=== PATIENT | female | born 1965 | race Caucasian/White ===

== ENCOUNTER 2017-08-29 06:58 | Emergency (ER) | payer OTHER ==
[2017-08-29 07:46] VITALS: BP 189/77; PULSE 76; TEMP 98; BMI 46.7
[2017-08-29] MEDS ORDERED: ONDANSETRON 4 MG TABLET PO ONE (08:27)
[2017-08-29] MEDS ORDERED: IBUPROFEN 600 MG TABLET (FP) PO ONE ×2 (08:27→08:41)
[2017-08-29] MEDS ORDERED: AMOXICILLIN 500 MG CAPSULE (FP) PO ONE (08:27)
--- NOTE | 2017-08-29 08:33 | PDOC ---
History of Present Illness - General History Source: Patient Exam Limitations: No Limitations - History of Present Illness Initial Comments: 08/29/17 08:35 The patient is a 52 year old female, with a significant past medical history of IDDM, GERD, HTN, Obesity who presents to the emergency department with sore throat, ear pain and subjective fever for the past 4 days. Patient denies taking any medications for relief and presents to the ED for further evaluation. Patient reports sick contacts at home. Patient denies chest pain, headache or dizziness. Patient denies abdominal pain , nausea, vomit, diarrhea or constipation. Patient denies dysuria, frequency, urgency or hematuria. Patient denied recent travel. <Mile Arrieta - Last Filed: 08/29/17 08:35> - General History Source: Patient Exam Limitations: No Limitations <Freddy Cosme - Last Filed: 08/29/17 08:36> - General Chief Complaint: Sore Throat Stated Complaint: COLD SYMPTOMS,DIABETIC Time Seen by Provider: 08/29/17 08:14 Past History <Mile Arrieta - Last Filed: 08/29/17 08:35> - Past Medical History COPD: No Diabetes: Yes (IDDM) GI Disorders: Yes (GERD) HTN: Yes - Suicide/Smoking/Psychosocial Hx Smoking History: Never smoked Have you smoked in the past 12 months: No Number of Cigarettes Smoked Daily: 0 Hx Alcohol Use: No Drug/Substance Use Hx: No Substance Use Type: None <Freddy Cosme - Last Filed: 08/29/17 08:36> - Past Medical History Allergies/Adverse Reactions: Allergies Allergy/AdvReac Type Severity Reaction Status Date / Time No Known Allergies Allergy Verified 08/29/17 07:27 Home Medications: Ambulatory Orders Aspirin [ASA -] 81 mg PO DAILY 01/23/16 Cefpodoxime Proxetil [Vantin -] 100 mg PO BID #20 tablet 01/23/16 Celecoxib [Celebrex] 200 mg PO DAILY 01/23/16 Furosemide [Lasix -] 20 mg PO DAILY 01/23/16 Insulin Detemir [Levemir Flextouch] 40 unit SQ BID 01/23/16 Losartan Potassium [Cozaar -] 25 mg PO DAILY 01/23/16 Metformin HCl 850 mg PO BID 01/23/16 Amoxicillin - [Amoxicillin 875mg Tablet -] 875 mg PO BID #14 tab 08/29/17 Ibuprofen [Motrin -] 600 mg PO Q6H PRN #20 tablet 08/29/17 Ondansetron HCl [Zofran] 4 mg PO Q8H PRN #10 tablet 08/29/17 Review of Systems - Review of Systems Able to Perform ROS?: Yes Comments:: 08/29/17 08:35 GENERAL/CONSTITUTIONAL: + fever or chills. No weakness. HEAD, EYES, EARS, NOSE AND THROAT: No change in vision. + ear pain and discharge. + sore throat. CARDIOVASCULAR: No chest pain or shortness of breath. RESPIRATORY: No cough, wheezing, or hemoptysis. GASTROINTESTINAL: No nausea, vomiting, diarrhea or constipation. GENITOURINARY: No dysuria, frequency, or change in urination. MUSCULOSKELETAL: No joint or muscle swelling or pain. No neck or back pain. SKIN: No rash NEUROLOGIC: No headache, vertigo, loss of consciousness, or change in strength/ sensation. ENDOCRINE: No increased thirst. No abnormal weight change. HEMATOLOGIC/LYMPHATIC: No anemia, easy bleeding, or history of blood clots. ALLERGIC/IMMUNOLOGIC: No hives or skin allergy. <Mile Arrieta - Last Filed: 08/29/17 08:35> *Physical Exam - Vital Signs Last Vital Signs Temp Pulse Resp BP Pulse Ox 98 F 76 18 189/77 97 08/29/17 07:25 08/29/17 07:25 08/29/17 07:25 08/29/17 07:25 08/29/17 07:25 - Physical Exam Comments: 08/29/17 08:36 GENERAL: Awake, alert, and fully oriented, in no acute distress HEAD: No signs of trauma EYES: PERRLA, EOMI, sclera anicteric, conjunctiva clear ENT: Auricles normal inspection, hearing grossly normal, nares patent, +L tympanic membrane with mild purulence. +Mild erythematous oropharynx. NECK: Normal ROM, supple, no lymphadenopathy, JVD, or masses LUNGS: Breath sounds equal, clear to auscultation bilaterally. No wheezes, and no crackles HEART: Regular rate and rhythm, normal S1 and S2, no murmurs, rubs or gallops ABDOMEN: Soft, nontender, normoactive bowel sounds. No guarding, no rebound. No masses EXTREMITIES: Normal range of motion, no edema. No clubbing or cyanosis. No cords, erythema, or tenderness NEUROLOGICAL: Cranial nerves II through XII grossly intact. Normal speech, normal gait SKIN: Warm, Dry, normal turgor, no rashes or lesions noted. <Mile Arrieta - Last Filed: 08/29/17 08:35> - Vital Signs Last Vital Signs Temp Pulse Resp BP Pulse Ox 98 F 76 18 189/77 97 08/29/17 07:25 08/29/17 07:25 08/29/17 07:25 08/29/17 07:25 08/29/17 07:25 <Freddy Cosme - Last Filed: 08/29/17 08:36> Medical Decision Making - Medical Decision Making 08/29/17 08:27 A portion of this note was documented by scribe services under my direction. I have reviewed the details of the note, within reason, and agree with the documentation with the following case summary and management plan written by me. Patient treated in the ED. Nursing notes are reviewed and incorporated into the medical decision-making. Vital signs reviewed. Vital Signs Temp Pulse Resp BP Pulse Ox 98 F 76 18 189/77 97 08/29/17 07:25 08/29/17 07:25 08/29/17 07:25 08/29/17 07:25 08/29/17 07:25 52-year-old female with past medical history obesity, insulin-dependent diabetes presents with sore throat, left earache, tactile fevers for 4 days. Reports a contact with a friend who visited. Denies difficulty breathing or chest pain. Also reports a mild nausea with the symptoms. The patient has left sided otitis media. NSAIDs, amoxicillin and follow with PMD. Return precautions given including worsening symptoms. I discussed the physical exam findings, ancillary test results and final diagnoses with the patient. I answered all of the patient's questions. The patient was satisfied with the care received and felt comfortable with the discharge plan and treatment plan. The patient will call their primary care physician within 24 hours to arrange follow-up and will return to the Emergency Department with any new, persistant or worsening symptoms. <Freddy Cosme - Last Filed: 08/29/17 08:36> *DC/Admit/Observation/Transfer - Attestations Scribe Attestion: 08/29/17 08:36 Documentation prepared by Mile Arrieta, acting as medical office supervisor for Freddy Cosme MD, /DO. <Mile Arrieta - Last Filed: 08/29/17 08:35> - Discharge Dispostion Admit: No <Freddy Cosme - Last Filed: 08/29/17 08:36> Diagnosis at time of Disposition: Otitis media Qualifiers: Otitis media type: unspecified Chronicity: acute Qualified Code(s): H66.90 - Otitis media, unspecified, unspecified ear - Discharge Dispostion Disposition: HOME Condition at time of disposition: Stable - Prescriptions Prescriptions: Amoxicillin - [Amoxicillin 875mg Tablet -] 875 mg PO BID #14 tab Ibuprofen [Motrin -] 600 mg PO Q6H PRN #20 tablet PRN Reason: Pain/fever Ondansetron HCl [Zofran] 4 mg PO Q8H PRN #10 tablet PRN Reason: Nausea - Referrals Referrals: Claire Diaz MD [Non Staff, Medical] - - Patient Instructions Printed Discharge Instructions: Middle Ear Infection Additional Instructions: Please take the amoxicillin every 12 hours for 7 days for your ear infection. Follow up with your doctor. - Post Discharge Activity Forms/Work/School Notes: Back to Work
[2017-08-29] MEDS ORDERED: AMOXICILLIN 500 MG CAPSULE (FP) ONE (08:40)
[2017-08-29] MEDS ORDERED: ONDANSETRON 8 MG TABLET (FP) PO ONE (08:42)
== END 2017-08-29 08:49 | disposition home or self-care (01) ==
LOC: JER 06:58
DX: H66.90 Otitis media, unspecified, unspecified ear (principal); E11.9 Type 2 diabetes mellitus without complications; K21.9 Gastro-esophageal reflux disease without esophagitis; I10 Essential (primary) hypertension
CPT/HCPCS: 99281-25

== ENCOUNTER 2017-09-03 13:12 | Inpatient (IN) | payer OTHER ==
--- NOTE | 2017-09-03 13:39 | PDOC ---
History of Present Illness - General Stated Complaint: VOMITING Time Seen by Provider: 09/03/17 13:15 - History of Present Illness Initial Comments: 09/03/17 13:37 Pt is a 52 y/o F poor historian with PMH IDDM, GERD, HTN, and Obesity who presents to ED BIBEMS for malaise, nausea, and NBNB vomiting since Sat. Pt was here last Wed with cold symptoms. She was sent home with a course of Amoxicillin, which she has not completed. Pt states she has not improved since discharge. Per EMS, BP at home was 180/88, BGM was 378. Pt takes amoxacillin, ibuprofen, and insulin, though she has not taken any of her meds today. Pt denies nausea, vomiting, diarrhea today, but still feels weak and tired. Pt states she is normally able to eat and drink without problems and denies bowel/bladder symptoms. She states she does not take Insulin normally at home and cannot recall which medications she does take. Currently afebrile, stable, and lethargic appearing. AAOx3. BGM 344 in ED Past History - Past Medical History Allergies/Adverse Reactions: Allergies Allergy/AdvReac Type Severity Reaction Status Date / Time No Known Allergies Allergy Verified 09/03/17 13:38 Home Medications: Ambulatory Orders Aspirin [ASA -] 81 mg PO DAILY 01/23/16 Cefpodoxime Proxetil [Vantin -] 100 mg PO BID #20 tablet 01/23/16 Celecoxib [Celebrex] 200 mg PO DAILY 01/23/16 Furosemide [Lasix -] 20 mg PO DAILY 01/23/16 Insulin Detemir [Levemir Flextouch] 60 unit SQ BID 01/23/16 Losartan Potassium [Cozaar -] 25 mg PO DAILY 01/23/16 Metformin HCl 850 mg PO BID 01/23/16 Ibuprofen [Motrin -] 600 mg PO Q6H PRN #20 tablet 08/29/17 Ondansetron HCl [Zofran] 4 mg PO Q8H PRN #10 tablet 08/29/17 COPD: No Diabetes: Yes (IDDM) GI Disorders: Yes (GERD) HTN: Yes - Suicide/Smoking/Psychosocial Hx Smoking History: Never smoked Have you smoked in the past 12 months: No Number of Cigarettes Smoked Daily: 0 Hx Alcohol Use: No Drug/Substance Use Hx: No Substance Use Type: None Review of Systems - Review of Systems Able to Perform ROS?: Yes Is the patient limited Italian proficient: No Constitutional: Yes: Symptoms Reported. No: Chills, Fever HEENTM: Yes: Symptoms Reported. No: Blurred Vision Respiratory: Yes: Symptoms reported. No: Cough Cardiac (ROS): Yes: Symptoms Reported. No: Chest Pain ABD/GI: Yes: Symptoms Reported, Nausea, Vomiting. No: Diarrhea : Yes: Symptoms Reported. No: Burning, Dysuria, Frequency, Incontinence, Pain , Urgency Musculoskeletal: Yes: Symptoms Reported. No: Back Pain Integumentary: Yes: Symptoms Reported. No: Lesions, Rash Neurological: Yes: Symptoms reported, Headache. No: Numbness *Physical Exam - Physical Exam General Appearance: Yes: Nourished, Appropriately Dressed, Disheveled, Obese, Other (somewhat lethargic). No: Apparent Distress, Alcohol on Breath HEENT: positive: EOMI, KLEBER, Normal Voice. negative: Normal ENT Inspection ( adentulous) Neck: positive: Supple. negative: Tender, Carotid bruit Respiratory/Chest: positive: Lungs Clear, Normal Breath Sounds. negative: Chest Tender, Respiratory Distress, Accessory Muscle Use Cardiovascular: positive: Regular Rhythm, Regular Rate, S1, S2. negative: Edema Vascular Pulses: Dorsalis-Pedis (R): 2+, Doralis-Pedis (L): 2+ Gastrointestinal/Abdominal: positive: Normal Bowel Sounds, Soft, Other (obese) Extremity: positive: Normal Range of Motion, Pedal Edema, Other (some stasis dermatitis). negative: Delayed Capillary Refill Integumentary: positive: Erythema (lower extremities) Neurologic: positive: mma fighter II-XII NML intact, Fully Oriented. negative: Alert ( somewhat lethargic) ED Treatment Course - LABORATORY CBC & Chemistry Diagram: 09/03/17 14:50 09/03/17 14:18 Medical Decision Making - Medical Decision Making 09/03/17 13:49 Pt is a 52 y/o F with PMH IDDM, HTN, GERD, Obesity who presents to ED with vague symptoms of malaise, nausea, and vomiting. Plan -CBC -CMP -BGM 378 in the field. BGM 344 in ED. Insulin -serum acetone -lipase -UA/UCx -Lactic Acid -EKG -2L NS -Zofran 09/03/17 16:26 Labs are benign. WBC, lipase, chem unremarkable apart from an elevated glucose. Pt is slightly better after fluids, but still weak appearing and not at her baseline. Will admit to obs 09/03/17 16:50 Spoke with hospitalist. Pt is accepted for admission to obs 09/03/17 18:21 Was called to see pt. Per nurse, pt was moved to a new bed. She was placed in her new bed and seen there by nurse. Nurse went to drop something off a few feet away, came back, and saw pt on the ground next to her bed. Pt states she slipped and slid down onto the ground. She denies having hit her head. She denies LOC. Neuro exam nonfocal. CN 2-12 intact with the possible exception of very subtle decreased R nasolabial fold. sensory and motor exams intact. No pronator drift. Will confirm no acute stroke with head CT. 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
[2017-09-03] MEDS ORDERED: ONDANSETRON 4 MG/2 ML VIAL IVPB ONE (14:12)
[2017-09-03] MEDS ORDERED: SODIUM CHLORIDE 1,000 ML IV STA ×2 (14:13→14:14)
[2017-09-03] MEDS ORDERED: INSULIN REGULAR HUMAN 100 UNITS/ML *VIAL SQ ONE (14:15)
--- NOTE | 2017-09-03 14:20 | PDOC ---
Attending Attestation - Resident Resident Name: J [email or web address] - ED Attending Attestation I have performed the following: I have examined & evaluated the patient, The case was reviewed & discussed with the resident, I agree w/resident's findings & plan, Exceptions are as noted - HPI HPI: 09/03/17 14:17 52-year-old female with history of diabetes presents with 1 week of increasing malaise, decreased appetite with vomiting, questionable epigastric discomfort. Hyperglycemia to 300 at home, denies any fevers or chills, denies any localizing symptoms of infection. - Physicial Exam PE: 09/03/17 14:18 Afebrile, slightly elevated blood pressure Morbidly obese Asleep/somnolent but arousable and oriented Dry mucosa Heart and lungs are clear Epigastric/right upper quadrant discomfort to palpation without guarding or rebound Bilateral venous stasis changes without warmth or erythema to suggest cellulitis - Medical Decision Making 09/03/17 14:18 Patient seen and evaluated with the resident. I agree with the overall evaluation, assessment, and management with the following summary of visit: 52-year-old female with history of diabetes presents with worsening malaise, dehydration, vomiting. Question primary GI etiology such as biliary or pancreatitis, rule out DKA. Labs including pH and acetone, ua/urine cx IV fluids, antiemetic, insulin Chest x-ray, EKG Reassess, likely admission Heart Score/ECG Review #1 ECG reviewed & interpreted by me at: 14:03 General ECG Interpretation: Sinus Rhythm, Normal Rate (76), Normal Intervals ( qtc 441), No acute ischemic changes
[2017-09-03 14:58] LABS: BASO % 0.6 % (0-2.0); EOS % 0.9 % (0-4.5); HEMATOCRIT 48.6 % (32.4-45.2); HEMOGLOBIN 15.8 GM/dL (10.7-15.3); LYMPH % 32.2 % (8-40); MCH 28.1 pg (25.7-33.7); MCHC 32.4 g/dl (32.0-36.0); MEAN CELL VOLUME 86.6 fl (80-96); NEUT % 59.3 % (42.8-82.8); PLATELET COUNT 207 K/MM3 (134-434); RBC 5.62 M/mm3 (3.60-5.2); RDW 13.6 % (11.6-15.6); WHITE BLOOD COUNT 7.5 K/mm3 (4.0-10.0)
[2017-09-03] MEDS ORDERED: INSULIN REGULAR HUMAN 100 UNITS/ML *VIAL ONE (15:03)
[2017-09-03] MEDS ORDERED: ONDANSETRON 4 MG/2 ML VIAL ONE (15:03)
[2017-09-03 15:21] LABS: ALBUMIN 3.1 g/dl (3.4-5.0); ANION GAP 6 (8-16); BILIRUBIN,TOTAL 0.3 mg/dL (0.2-1.0); BLOOD UREA NITROGEN 12 mg/dL (7-18); CALCIUM 8.9 mg/dL (8.5-10.1); CHLORIDE 99 mmol/L (98-107); CO2 33 mmol/L (21-32); CREATININE 0.7 mg/dL (0.55-1.02); LIPASE 112 U/L (73-393); SGPT/ALT 21 U/L (12-78); SODIUM 138 mmol/L (136-145); TOT PROT 7.2 g/dl (6.4-8.2)
[2017-09-03 15:22] LABS: ALK PHOS 123 U/L (45-117)
[2017-09-03 15:25] LABS: POTASSIUM 4.4 mmol/L (3.5-5.1)
[2017-09-03 15:26] LABS: SGOT/AST 15 U/L (15-37)
[2017-09-03 15:28] LABS: GLUCOSE,RANDOM 328 mg/dL (74-106)
[2017-09-03] MEDS ORDERED: ONDANSETRON 4 MG TABLET PO PRN (18:23)
[2017-09-03] MEDS ORDERED: HEPARIN NA (PORCINE) 5,000 UNITS/ML 1ML VIAL SQ SCH (18:30)
[2017-09-03] MEDS ORDERED: SODIUM CHLORIDE 1,000 ML IV SCH ×3 (18:30→22:47)
--- NOTE | 2017-09-03 18:34 | HP ---
CHIEF COMPLAINT: "People keep disturbing me, I want to sleep." PCP: Unknown HISTORY OF PRESENT ILLNESS: 52 year-old woman with a PMH significant for HTN, IDDM, GERD, and morbid obesity. Patient is unable to give a history to this provider and there are no family members present. On the basis of a chart review, the patient was seen in the ED last Saturday with a sore throat and otitis media. She was treated and released with a course of amoxicillin. Patient was BIBA today with a report weakness and fatigue x 5 days. ER course was notable for: (1) afebrile, BP 159/77, p 75, SpO2 100% on room air (2) Glucose 378 (3) CT head: 1.1 x 0.7 cm focus left thalamus suggestive of acute/subacute nonhemorrhage infarct; 0.7cm focus upper hayley, acute nonhemorrhagic infarct v. artifact Recent Travel: Not obtainable PAST MEDICAL HISTORY: Hypertension IDDM GERD Morbid obesity PAST SURGICAL HISTORY: None reported Social History: lives with and two children Smoking: never Alcohol: no Drugs: no Family History: Allergies No Known Allergies Allergy (Verified 09/03/17 13:38) HOME MEDICATIONS: Home Medications Medication Instructions Recorded Aspirin [ASA -] 81 mg PO DAILY 01/23/16 Cefpodoxime Proxetil [Vantin -] 100 mg PO BID #20 tablet 01/23/16 Celecoxib [Celebrex] 200 mg PO DAILY 01/23/16 Furosemide [Lasix -] 20 mg PO DAILY 01/23/16 Insulin Detemir [Levemir Flextouch] 60 unit SQ BID 01/23/16 Losartan Potassium [Cozaar -] 25 mg PO DAILY 01/23/16 Metformin HCl 850 mg PO BID 01/23/16 Ibuprofen [Motrin -] 600 mg PO Q6H PRN #20 tablet 08/29/17 Ondansetron HCl [Zofran] 4 mg PO Q8H PRN #10 tablet 08/29/17 REVIEW OF SYSTEMS Unable to obtain due to patient's altered mental status, somnolence PHYSICAL EXAMINATION Vital Signs - 24 hr 09/03/17 09/03/17 09/03/17 13:36 15:43 16:31 Temperature 97.7 F Pulse Rate 75 Pulse Rate [ 79 Apical] Respiratory 19 18 Rate Blood Pressure 159/77 Blood Pressure 138/71 [Right Arm] O2 Sat by Pulse 100 98 99 Oximetry (%) GENERAL: Awake, lethargic, yawning and closes eyes while talking; speech content is disjointed HEAD: Normal with no signs of trauma. EYES: Pupils equal, round and reactive to light, extraocular movements intact, sclera anicteric, conjunctiva clear. No lid lag. EARS, NOSE, THROAT: Ears normal, nares patent, oropharynx clear without exudates. Moist mucous membranes. Edentulous. NECK: Normal range of motion, supple without lymphadenopathy, JVD, or masses. LUNGS: Breath sounds equal, clear to auscultation bilaterally. No wheezes, and no crackles. No accessory muscle use. HEART: Regular rate and rhythm, normal S1 and S2 +murmur ABDOMEN: Soft, obese, not tender, hypoactive bowel sounds MUSCULOSKELETAL: Normal range of motion at all joints. No bony deformities or tenderness. No CVA tenderness. UPPER EXTREMITIES: 2+ pulses, warm, well-perfused. No cyanosis. No clubbing. No peripheral edema. LOWER EXTREMITIES: 2+ pulses, warm, well-perfused. 3+ bilateral edema, venous stasis changes NEUROLOGICAL: Cranial nerves II-XII intact. Speech is delayed, content disjointed. Laboratory Results - last 24 hr 09/03/17 09/03/17 09/03/17 13:31 14:18 14:50 WBC 7.5 RBC 5.62 H Hgb 15.8 H D Hct 48.6 H MCV 86.6 MCH 28.1 MCHC 32.4 RDW 13.6 Plt Count 207 MPV 11.0 Neutrophils % 59.3 Lymphocytes % 32.2 D Monocytes % 7.0 Eosinophils % 0.9 Basophils % 0.6 Sodium 138 Potassium 4.4 Chloride 99 Carbon Dioxide 33 H Anion Gap 6 L BUN 12 Creatinine 0.7 Creat Clearance w eGFR > 60 POC Glucometer < 50 Random Glucose 328 H* Calcium 8.9 Total Bilirubin 0.3 D AST 15 D ALT 21 D Alkaline Phosphatase 123 H Total Protein 7.2 Albumin 3.1 L Lipase 112 ASSESSMENT/PLAN 52 year-old woman with a PMH significant for HTN, IDDM, GERD, and morbid obesity who presents with fatigue and somnolence, and found to have a left thalamic acute/subacute nonhemorrhagic infarct, and possibly a pontine acute nonhemorrhagic infarct. Acute/Subacute CVA --CT head: 1.1 x 0.7 cm focus of left thalamus suggestive of acute/subacute nonhemorrhagic infarct; 0.7cm focus upper hayley, acute nonhemorrhagic infarct v. artifact --full dose ASA --high dose Lipitor --echo, US carotids, serial ECGs --MRI brain --neuro consult Hypertension --BP 159/77 on admission --hold Losartan IDDM --Novolog sliding scale coverage --need to verify Levemir dose with pharmacy which is presently closed GERD --Protonix IVP 40mg daily FEN Fluids: NS @ 83mL/hr while NPO Electrolytes: replete as indicated Nutrition: needs speech and swallow; too lethargic to eat; NPO DVT prophylaxis: SCDs; hold chemical prophylaxis Physical therapy evaluation Swallow evaluation Dispo: continues to require inpatient care. Full code. Visit type - Emergency Visit Emergency Visit: Yes ED Registration Date: 09/03/17 Care time: The patient presented to the Emergency Department on the above date and was hospitalized for further evaluation of their emergent condition. - New Patient This patient is new to me today: Yes Date on this admission: 09/03/17 - Critical Care Critical Care patient: No
[2017-09-03] MEDS ORDERED: FUROSEMIDE 40 MG TABLET (FP) ONE (18:43)
[2017-09-03] MEDS: FUROSEMIDE 20 MG TABLET (FP) PO SCH (18:43)
[2017-09-03] MEDS ORDERED: ASPIRIN 325 MG ENTERIC COATED TABLET (FP) PO SCH (20:30)
[2017-09-03] MEDS ORDERED: ASPIRIN 325 MG TABLET ONE (20:32)
[2017-09-03] MEDS ORDERED: ATORVASTATIN CA 80 MG TABLET (FP) ONE (20:32)
--- NOTE | 2017-09-03 20:34 | HOSP ---
Subjective - Review of Symptoms Subjective: Called R. Subacute/acute CVA on CT -No timeline of sx - Asa, Statin, echo, carotid, npo, S&S, Trend trop, tele, Neuro consulted, TSh, b12, folate, HgbA1c, MRI Brain wo con Physical Examination Vital Signs: Vital Signs Temperature 97.7 F 09/03/17 13:36 Pulse Rate 79 09/03/17 16:31 Respiratory Rate 18 09/03/17 16:31 Blood Pressure 138/71 09/03/17 16:31 O2 Sat by Pulse Oximetry (%) 99 09/03/17 16:31 Labs: CBC, BMP 09/03/17 14:50 09/03/17 14:18
[2017-09-03] MEDS: ASPIRIN 325 MG ENTERIC COATED TABLET (FP) PO STA (20:41)
[2017-09-03] MEDS: ATORVASTATIN CA 80 MG TABLET (FP) PO ONE ×2 (20:41→20:46)
[2017-09-03] MEDS: ASPIRIN 81 MG CHEWABLE TABLETS PO SCH (20:41)
[2017-09-03] MEDS: INSULIN SLIDING SCALE (NOVOLOG) 1 VIAL SQ SCH (22:35)
[2017-09-03] MEDS ORDERED: chlordiazePOXIDE HCL 25 MG CAPSULE PO PRN (22:45)
[2017-09-03] MEDS ORDERED: LORazepam 2 MG/ML SDV VIAL IVPUSH ONE (22:50)
[2017-09-03] MEDS ORDERED: CEFTRIAXONE 1 G/50 ML PREMIX 50 ML IVPB SCH (23:00)
[2017-09-03] MEDS ORDERED: chlordiazePOXIDE HCL 25 MG CAPSULE PO SCH (23:00)
[2017-09-03 23:11] VITALS: BMI 47.0
[2017-09-04] MEDS: ASPIRIN 325 MG ENTERIC COATED TABLET (FP) PO STA (02:16)
[2017-09-04 05:11] LABS: URINE APPEARANCE CLEAR; URINE BILIRUBIN NEGATIVE (NEGATIVE); URINE BLOOD NEGATIVE (NEGATIVE); URINE COLOR LTYELLOW; URINE GLUCOSE (UA) NEGATIVE (NEGATIVE); URINE KETONE NEGATIVE (NEGATIVE); URINE LEUK ESTERASE NEGATIVE (NEGATIVE); URINE NITRITE NEGATIVE (NEGATIVE); URINE PROTEIN NEGATIVE (NEGATIVE); URINE UROBILINOGEN NEGATIVE mg/dL (0.2-1.0)
[2017-09-04] MEDS ORDERED: HEPARIN NA (PORCINE) 5,000 UNITS/ML 1ML VIAL SQ SCH (06:00)
[2017-09-04] MEDS: INSULIN SLIDING SCALE (NOVOLOG) 1 VIAL SQ SCH ×4 (06:22→21:53)
[2017-09-04 07:30] LABS: BASO % 0.4 % (0-2.0); EOS % 1.3 % (0-4.5); HEMATOCRIT 43.8 % (32.4-45.2); LYMPH % 39.4 % (8-40); MCH 27.6 pg (25.7-33.7); MCHC 31.9 g/dl (32.0-36.0); MEAN CELL VOLUME 86.7 fl (80-96); NEUT % 49.9 % (42.8-82.8); PLATELET COUNT 192 K/MM3 (134-434); RBC 5.05 M/mm3 (3.60-5.2); RDW 13.3 % (11.6-15.6); WHITE BLOOD COUNT 6.7 K/mm3 (4.0-10.0)
[2017-09-04 07:44] LABS: ALBUMIN 2.8 g/dl (3.4-5.0); ANION GAP 4 (8-16); BLOOD UREA NITROGEN 12 mg/dL (7-18); CHLORIDE 103 mmol/L (98-107); CHOLESTEROL 211 mg/dL (50-200); CO2 34 mmol/L (21-32); CREATININE 0.7 mg/dL (0.55-1.02); GLUCOSE,RANDOM 232 mg/dL (74-106); MAGNESIUM 1.8 mg/dL (1.8-2.4); PHOSPHOROUS 4.1 mg/dL (2.5-4.9); POTASSIUM 3.8 mmol/L (3.5-5.1); SGOT/AST 9 U/L (15-37); SGPT/ALT 17 U/L (12-78); SODIUM 141 mmol/L (136-145); TOT PROT 6.1 g/dl (6.4-8.2); TRIGLYCERIDES 219 mg/dL (35-160)
[2017-09-04 07:51] LABS: ALK PHOS 100 U/L (45-117); BILIRUBIN,TOTAL 0.5 mg/dL (0.2-1.0); HDL CHOLESTEROL 37 mg/dL (40-60)
[2017-09-04 08:06] LABS: INR 1.03 (0.82-1.09); PROTHROMBIN TIME (PATIENT) 11.6 SEC (9.98-11.88)
[2017-09-04 08:09] LABS: ACTIVATED PTT 26.3 SECONDS (26.9-34.4)
--- NOTE | 2017-09-04 09:17 | CON.NEURO ---
Consult - History of Present Illness History of Present Illness: 52 year-old woman with a PMH significant for HTN, IDDM, GERD, and morbid obesity. Patient is unable to give a history to this provider and there are no family members present. On the basis of a chart review, the patient was seen in the ED last Saturday with a sore throat and otitis media. She was treated and released with a course of amoxicillin. Patient was BIBA today with a report weakness and fatigue x 5 days. denies focal weakness, numbness; no toxic habits; mild COOK CT head: 1.1 x 0.7 cm focus left thalamus suggestive of acute/subacute nonhemorrhage infarct; 0.7cm focus upper hayley, acute nonhemorrhagic infarct v. artifact - History Source History Provided By: Patient, Medical Record - Past Medical History ...: No - Alcohol/Substance Use Hx Alcohol Use: No - Smoking History Smoking history: Never smoked Have you smoked in the past 12 months: No Aproximately how many cigarettes per day: 0 Home Medications - Allergies Allergies/Adverse Reactions: Allergies Allergy/AdvReac Type Severity Reaction Status Date / Time No Known Allergies Allergy Verified 09/03/17 13:38 - Home Medications Home Medications: Ambulatory Orders Aspirin [ASA -] 81 mg PO DAILY 01/23/16 Cefpodoxime Proxetil [Vantin -] 100 mg PO BID #20 tablet 01/23/16 Celecoxib [Celebrex] 200 mg PO DAILY 01/23/16 Furosemide [Lasix -] 20 mg PO DAILY 01/23/16 Insulin Detemir [Levemir Flextouch] 60 unit SQ BID 01/23/16 Losartan Potassium [Cozaar -] 25 mg PO DAILY 01/23/16 Metformin HCl 850 mg PO BID 01/23/16 Ibuprofen [Motrin -] 600 mg PO Q6H PRN #20 tablet 08/29/17 Ondansetron HCl [Zofran] 4 mg PO Q8H PRN #10 tablet 08/29/17 Physical Exam-Neuro Vital Signs: Vital Signs Temperature 97.5 F L 09/04/17 06:00 Pulse Rate 88 09/04/17 06:00 Respiratory Rate 20 09/04/17 06:00 Blood Pressure 128/63 09/04/17 06:00 O2 Sat by Pulse Oximetry (%) 97 01/03/18 02:27 Constitutional: Yes: Well Nourished, No Distress Labs: CBC, BMP 09/04/17 06:30 09/04/17 06:30 INR, PTT INR 1.03 (0.82-1.09) 09/04/17 06:30 - Neuro Exam Level Of Consciousness: Yes: Alert, Oriented to Person (EOMI, no facial, poor dentition, nmo drift , no weakness, reflexes symmtric , no sesnory ABNL ) Imaging - Results Cat Scan: Report Reviewed, Image Reviewed Problem List - Problems (1) CVA (cerebral vascular accident) Code(s): I63.9 - CEREBRAL INFARCTION, UNSPECIFIED (2) Hyperglycemia due to type 2 diabetes mellitus Code(s): E11.65 - TYPE 2 DIABETES MELLITUS WITH HYPERGLYCEMIA Qualifiers: Diabetes mellitus group home 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 Qualified Code( s): E11.65 - Type 2 diabetes mellitus with hyperglycemia; Z79.4 - long term care social worker ( current) use of insulin; Z79.4 - long term care social worker (current) use of insulin; Z79.4 - correction (current) use of insulin; Z79.4 - long term care social worker (current) use of insulin Assessment/Plan 52 year-old woman with a PMH significant for HTN, IDDM, GERD, and morbid obesity , admitted with fatigue and generalized weakness CT suggets L thalamic stroke though neurologically do not see focal deficits HX of DM uncontrolled--optimization -- n check MRI BRAIN /MRA, ECHO , Dopplers ASA, statin A1c, TSH PT consult Dr Ruiz
--- NOTE | 2017-09-04 09:30 | EKG ---
Test Reason : Blood Pressure : / mmHG Vent. Rate : 076 BPM Atrial Rate : 076 BPM P-R Int : 160 ms QRS Dur : 082 ms QT Int : 392 ms P-R-T Axes : 059 018 041 degrees QTc Int : 441 ms NORMAL SINUS RHYTHM POSSIBLE LEFT ATRIAL ENLARGEMENT BORDERLINE ECG Confirmed by MD Quan, Abdiaziz ([id number]) on 09/04/2017 9:30:07 AM Referred By: Confirmed By:Abdiaziz Glass MD
[2017-09-04] MEDS ORDERED: LOSARTAN POTASSIUM 25 MG TABLET PO SCH (10:00)
[2017-09-04] MEDS: FUROSEMIDE 20 MG TABLET (FP) PO SCH ×2 (11:00→17:51)
[2017-09-04] MEDS: ASPIRIN 81 MG CHEWABLE TABLETS PO SCH ×2 (11:00→17:51)
[2017-09-04] MEDS: PANTOPRAZOLE SODIUM 40 MG VIAL IVPUSH SCH (11:03)
--- NOTE | 2017-09-04 15:47 | CONSULT ---
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 Cardiovascular: Yes: HTN Gastrointestinal: Yes: GERD ...: No Endocrine: Yes: Diabetes Mellitus Additional Past Medical History: obesity, otitis media, hyperglycemia - Smoking History Smoking history: Never smoked Have you smoked in the past 12 months: No Aproximately how many cigarettes per day: 0 - Alcohol/Substance Use Hx Alcohol Use: No History - Admission Reason For Visit: TYPE 2 DIABETES MELLITUS W/ HYPERGLYCEMIA - Diagnostics X-ray: Report Reviewed CT Scan: Report Reviewed MRI: Report Reviewed - General Mental Status: Awake and Alert, Intermittently Confused Attention: Minimal Impairment Ability to Follow Directions: Good Head/Neck Control: Good - Hearing Hearing: Normal Speech Evaluation - Communication Primary Language: GU[place] - Swallow Evaluation/Bedside Assessment Current Nutritional Intake: NPO Oral Secretions: Yes: WFL Tracheostomy Present: No Patient on Ventilator: No Dentition: Yes: Missing Teeth Facial Symmetry at Rest: Facial Droop Right Facial Movement: Controlled Sensation: Normal Jaw Position: Closed at Rest Against Resistance Opening: Normal Pucker Lips: Normal Smile: Normal Lingual Movement: Normal Lingual Speed of Movement: Normal Lingual Movement Strgth Against Opposition: Normal Soft Palate Description: Normal Color Hard Palate Description: Normal Color Gag Reflex: Strong Bite Reflex: Absent Velopharyngeal Movement: Normal Laryngeal Elevation: WFL Laryngeal Movement: Able to Palpate Needs Assistance: No Rate of Intake: WFL Bolus Size: WFL Labial Seal: WFL Oral Prep Time: WFL A-P Transit: WFL Pocketing: None Timing of Swallow: WFL Coughing/Throat Clear: No Change in Voice: No Recommendations - Dysphagia Impressions/Plan Swallowing Skills: WFL Dysphagia Evaluation Summary: 52 year old female is able to tolerate thin liquids and pureed consistencies without signs of aspiration. 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 - Recommendations Diet Consistency: Dysphagia Whole Medication Administration: Whole with water Liquids: Thin Liquids
--- NOTE | 2017-09-04 16:49 | EKG ---
Test Reason : Blood Pressure : / mmHG Vent. Rate : 095 BPM Atrial Rate : 095 BPM P-R Int : 156 ms QRS Dur : 080 ms QT Int : 350 ms P-R-T Axes : 051 015 049 degrees QTc Int : 439 ms NORMAL SINUS RHYTHM POSSIBLE LEFT ATRIAL ENLARGEMENT NONSPECIFIC T WAVE ABNORMALITY ABNORMAL ECG WHEN COMPARED WITH ECG OF 03-SEP-2017 14:03, NO SIGNIFICANT CHANGE WAS FOUND Confirmed by REYNA THAKUR MD ([id number]) on 09/04/2017 4:48:54 PM Referred By: PASCUAL Ruiz DR Confirmed By:REYNA THAKUR MD
--- NOTE | 2017-09-04 17:14 | PN ---
Physical Exam: SUBJECTIVE: Patient seen and examined at bedside, "I'm tired. I just want to sleep." Denies pain. OBJECTIVE: Vital Signs Period Temp Pulse Resp BP Sys/Ziegler Pulse Ox Last 24 Hr 97.5 F-9798.2 F 70-88 16-20 128-144/63-77 97-100 GENERAL: Slightly more awake than yesterday, but still lethargic. Speech is clear, content coherent. HEAD: Normal with no signs of trauma. EYES: PERRL, extraocular movements intact, sclera anicteric, conjunctiva clear. No ptosis. ENT: Ears normal, nares patent, oropharynx clear without exudates, moist mucous membranes. NECK: Trachea midline, full range of motion, supple. LUNGS: Breath sounds equal, clear to auscultation bilaterally, no wheezes, no crackles, no accessory muscle use. HEART: Regular rate and rhythm, S1, S2 without murmur, rub or gallop. ABDOMEN: Soft, obese, nontender, nondistended, normoactive bowel sounds, no guarding, no rebound UPPER EXTREMITIES: 2+ pulses, warm, well-perfused. No cyanosis. No clubbing. No peripheral edema. LOWER EXTREMITIES: 2+ pulses, warm, well-perfused. 3+ bilateral edema, venous stasis changes NEUROLOGICAL: Cranial nerves II-XII intact. Speech is delayed, content disjointed. Laboratory Results - last 24 hr 09/04/17 09/04/17 09/04/17 04:30 05:27 06:30 WBC 6.7 RBC 5.05 Hgb 14.0 D Hct 43.8 MCV 86.7 MCH 27.6 MCHC 31.9 L RDW 13.3 Plt Count 192 MPV 11.0 Neutrophils % 49.9 Lymphocytes % 39.4 D Monocytes % 9.0 Eosinophils % 1.3 Basophils % 0.4 PT with INR INR PTT (Actin FS) Sodium Potassium Chloride Carbon Dioxide Anion Gap BUN Creatinine Creat Clearance w eGFR POC Glucometer 217 Random Glucose Hemoglobin A1c % Calcium Phosphorus Magnesium Total Bilirubin AST ALT Alkaline Phosphatase Total Protein Albumin Triglycerides Cholesterol Total LDL Cholesterol HDL Cholesterol TSH Urine Color Ltyellow Urine Appearance Clear Urine pH 5.0 Ur Specific [place] 1.011 Urine Protein Negative Urine Glucose (UA) Negative Urine Ketones Negative Urine Blood Negative Urine Nitrite Negative Urine Bilirubin Negative Urine Urobilinogen Negative Ur Leukocyte Esterase Negative 09/04/17 09/04/17 09/04/17 06:30 06:30 06:30 WBC RBC Hgb Hct MCV MCH MCHC RDW Plt Count MPV Neutrophils % Lymphocytes % Monocytes % Eosinophils % Basophils % PT with INR 11.60 INR 1.03 PTT (Actin FS) 26.3 L Sodium 141 Potassium 3.8 Chloride 103 Carbon Dioxide 34 H Anion Gap 4 L BUN 12 Creatinine 0.7 Creat Clearance w eGFR > 60 POC Glucometer Random Glucose 232 H D Hemoglobin A1c % 12.7 H Calcium 8.0 L Phosphorus 4.1 Magnesium 1.8 Total Bilirubin 0.5 D AST 9 L D ALT 17 Alkaline Phosphatase 100 Total Protein 6.1 L Albumin 2.8 L Triglycerides 219 H Cholesterol 211 H Total LDL Cholesterol HDL Cholesterol 37 L TSH 1.66 Urine Color Urine Appearance Urine pH Ur Specific [place] Urine Protein Urine Glucose (UA) Urine Ketones Urine Blood Urine Nitrite Urine Bilirubin Urine Urobilinogen Ur Leukocyte Esterase 09/04/17 09/04/17 06:30 11:11 WBC RBC Hgb Hct MCV MCH MCHC RDW Plt Count MPV Neutrophils % Lymphocytes % Monocytes % Eosinophils % Basophils % PT with INR INR PTT (Actin FS) Sodium Potassium Chloride Carbon Dioxide Anion Gap BUN Creatinine Creat Clearance w eGFR POC Glucometer 234 Random Glucose Hemoglobin A1c % Calcium Phosphorus Magnesium Total Bilirubin AST ALT Alkaline Phosphatase Total Protein Albumin Triglycerides Cholesterol Total LDL Cholesterol 143 H HDL Cholesterol TSH Urine Color Urine Appearance Urine pH Ur Specific [place] Urine Protein Urine Glucose (UA) Urine Ketones Urine Blood Urine Nitrite Urine Bilirubin Urine Urobilinogen Ur Leukocyte Esterase Active Medications Generic Name Dose Route Start Last Admin Trade Name [place] PRN Reason Stop Dose Admin Aspirin 81 mg 09/03/17 18:30 09/04/17 11:00 Asa - PO Not Given DAILY [facility] Atorvastatin Calcium 80 mg 09/04/17 22:00 Lipitor - PO HS YOSI Furosemide 20 mg 09/03/17 18:30 09/04/17 11:00 Lasix - PO Not Given DAILY YOSI Insulin Aspart 1 vial 09/03/17 22:00 09/04/17 12:56 Novolog Vial Sliding Scale - SQ 4 units ACHS YOSI Administration Protocol Pantoprazole Sodium 40 mg 09/04/17 10:00 09/04/17 11:03 Protonix Iv IVPUSH 40 mg DAILY YOSI Administration ASSESSMENT/PLAN 52 year-old woman with a PMH significant for HTN, IDDM, GERD, and morbid obesity who presents with fatigue and somnolence, and found to have a left thalamic acute/subacute nonhemorrhagic infarct, and possibly a pontine acute nonhemorrhagic infarct. Acute/Subacute CVA --09/04 MRI brain: acute infarct in the ventral left thalamus encroaching on the posterior limb of the left internal capsule with mild focal mass effect on the third ventricle; chronic infarcts bilateral thalami, left midbrain, and superior left hayley --09/04 MRA brain: severe narrowing with attenuated flow in the distal P1 and proximal P2 segment of the left posterior cerebral artery, atherosclerosis v. vasculitis --09/03 US carotids: mild atherosclerotic disease without evidence of hemodynamically significant stenosis --continue ASA --high dose Lipitor --start Plavix --Dr. Ruiz following Diastolic dysfunction --09/04 Echo: impaired LV relaxation; RV normal; LAE; no atrial septal defect; mild MR; mild TR; trace PI --bilateral lower extremity edema --is on home dose Lasix PO 20mg; will not increase at this time so as not to drop BP Hypertension --BP 159/77 on admission --hold home Losartan and HCTZ IDDM --Novolog sliding scale coverage --per pharmacy, patient takes Levemir 60U qhs which seems high since patient has required only minimal sliding scale coverage; hold Levemir for now GERD --Protonix Depression --resume home Zoloft FEN Fluids: PO intake adequate Electrolytes: replete as indicated Nutrition: speech and swallow eval done: soft diet DVT prophylaxis: SCDs; subq heparin Physical therapy evaluation Dispo: continues to require inpatient care. Full code. Visit type - Emergency Visit Emergency Visit: Yes ED Registration Date: 09/03/17 Care time: The patient presented to the Emergency Department on the above date and was hospitalized for further evaluation of their emergent condition. - New Patient This patient is new to me today: No - Critical Care Critical Care patient: No
[2017-09-04] MEDS: CLOPIDOGREL BISULFATE 75 MG TABLET (FP) PO SCH (17:59)
[2017-09-04] MEDS: SERTRALINE HCL 50 MG TABLET (FP) PO SCH (18:05)
[2017-09-04] MEDS: ATORVASTATIN CA 80 MG TABLET (FP) PO SCH (21:49)
[2017-09-04] MEDS: HEPARIN NA (PORCINE) 5,000 UNITS/ML 1ML VIAL SQ SCH (21:49)
[2017-09-04] MEDS ORDERED: INSULIN (NOVOLOG) ASPART 100 UNITS/ML 10ML VIAL ONE (21:52)
[2017-09-04] MEDS ORDERED: chlordiazePOXIDE HCL 25 MG CAPSULE PO SCH (23:00)
[2017-09-05] MEDS: INSULIN SLIDING SCALE (NOVOLOG) 1 VIAL SQ SCH ×4 (06:05→21:53)
[2017-09-05] MEDS: HEPARIN NA (PORCINE) 5,000 UNITS/ML 1ML VIAL SQ SCH ×3 (06:05→21:53)
[2017-09-05] MEDS ORDERED: INSULIN (NOVOLOG) ASPART 100 UNITS/ML 10ML VIAL ONE ×2 (06:22→21:32)
--- NOTE | 2017-09-05 07:23 | PN ---
Progress Note (short form) - Note Progress Note: 52 year-old woman with a PMH significant for HTN, IDDM, GERD, and morbid obesity. Patient is unable to give a history to this provider and there are no family members present. On the basis of a chart review, the patient was seen in the ED last Saturday with a sore throat and otitis media. She was treated and released with a course of amoxicillin. Patient was BIBA today with a report weakness and fatigue x 5 days. denies focal weakness, numbness; no toxic habits; mild COOK CT head: 1.1 x 0.7 cm focus left thalamus suggestive of acute/subacute nonhemorrhage infarct; 0.7cm focus upper hayley, acute nonhemorrhagic infarct v. 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 --suspect symptomatic atherolsclerosis rather than vasculitis --poorly controlled DM ECHO-essentially NL DOppler-no hemodynamic stenosis - History Source History Provided By: Patient, Medical Record - Past Medical History ...: No - Alcohol/Substance Use Hx Alcohol Use: No - Smoking History Smoking history: Never smoked Have you smoked in the past 12 months: No Aproximately how many cigarettes per day: 0 Home Medications - Allergies Allergies/Adverse Reactions: Allergies Allergy/AdvReac Type Severity Reaction Status Date / Time No Known Allergies Allergy Verified 09/03/17 13:38 - Home Medications Home Medications: Ambulatory Orders Aspirin [ASA -] 81 mg PO DAILY 01/23/16 Cefpodoxime Proxetil [Vantin -] 100 mg PO BID #20 tablet 01/23/16 Celecoxib [Celebrex] 200 mg PO DAILY 01/23/16 Furosemide [Lasix -] 20 mg PO DAILY 01/23/16 Insulin Detemir [Levemir Flextouch] 60 unit SQ BID 01/23/16 Losartan Potassium [Cozaar -] 25 mg PO DAILY 01/23/16 Metformin HCl 850 mg PO BID 01/23/16 Ibuprofen [Motrin -] 600 mg PO Q6H PRN #20 tablet 08/29/17 Ondansetron HCl [Zofran] 4 mg PO Q8H PRN #10 tablet 08/29/17 Physical Exam-Neuro Vital Signs: Vital Signs Temperature 98.2 F 09/05/17 05:49 Pulse Rate 81 09/05/17 05:49 Respiratory Rate 18 09/05/17 05:49 Blood Pressure 146/85 09/05/17 05:49 O2 Sat by Pulse Oximetry (%) 92 L 09/05/17 02:00 Constitutional: Yes: Well Nourished, No Distress Labs: CBCD WBC 6.7 K/mm3 (4.0-10.0) 09/04/17 06:30 RBC 5.05 M/mm3 (3.60-5.2) 09/04/17 06:30 Hgb 14.0 GM/dL (10.7-15.3) D 09/04/17 06:30 Hct 43.8 % (32.4-45.2) 09/04/17 06:30 MCV 86.7 fl (80-96) 09/04/17 06:30 MCHC 31.9 g/dl (32.0-36.0) L 09/04/17 06:30 RDW 13.3 % (11.6-15.6) 09/04/17 06:30 Plt Count 192 K/MM3 (134-434) 09/04/17 06:30 MPV 11.0 fl (7.5-11.1) 09/04/17 06:30 CMP Sodium 141 mmol/L (136-145) 09/04/17 06:30 Potassium 3.8 mmol/L (3.5-5.1) 09/04/17 06:30 Chloride 103 mmol/L (98-107) 09/04/17 06:30 Carbon Dioxide 34 mmol/L (21-32) H 09/04/17 06:30 Anion Gap 4 (8-16) L 09/04/17 06:30 BUN 12 mg/dL (7-18) 09/04/17 06:30 Creatinine 0.7 mg/dL (0.55-1.02) 09/04/17 06:30 Creat Clearance w eGFR > 60 (>60) 09/04/17 06:30 Calcium 8.0 mg/dL (8.5-10.1) L 09/04/17 06:30 Total Bilirubin 0.5 mg/dL (0.2-1.0) D 09/04/17 06:30 AST 9 U/L (15-37) L D 09/04/17 06:30 ALT 17 U/L (12-78) 09/04/17 06:30 Alkaline Phosphatase 100 U/L (45-117) 09/04/17 06:30 Total Protein 6.1 g/dl (6.4-8.2) L 09/04/17 06:30 Albumin 2.8 g/dl (3.4-5.0) L 09/04/17 06:30 - Neuro Exam Level Of Consciousness: Yes: Alert, Oriented to Person (EOMI, no facial, poor dentition, RUE drift , , reflexes symmtric , no sesnory ABNL ) Imaging - Results Cat Scan: Report Reviewed, Image Reviewed Problem List - Problems (1) CVA (cerebral vascular accident) Code(s): I63.9 - CEREBRAL INFARCTION, UNSPECIFIED (2) Hyperglycemia due to type 2 diabetes mellitus Code(s): E11.65 - TYPE 2 DIABETES MELLITUS WITH HYPERGLYCEMIA Qualifiers: Diabetes mellitus roasterman insulin use: with halfway use Qualified Code( s): E11.65 - Type 2 diabetes mellitus with hyperglycemia; Z79.4 - correction ( current) use of insulin; Z79.4 - exterminator helper termite (current) use of insulin; Z79.4 - correction (current) use of insulin; Z79.4 - exterminator helper termite (current) use of insulin Assessment/Plan 52 year-old woman with a PMH significant for HTN, IDDM, GERD, and morbid obesity , admitted with fatigue and generalized weakness MRI L thalamic stroke and sever stenosis 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 FU ECHO , Dopplers ASA and plavix,(after 3 months revert to single AP) , statin A1c, TSH , add on ESR, GI , ANTI DS DNA PT consult Dr Ruiz Problem List - Problems (1) CVA (cerebral vascular accident) Code(s): I63.9 - CEREBRAL INFARCTION, UNSPECIFIED (2) Hyperglycemia due to type 2 diabetes mellitus Code(s): E11.65 - TYPE 2 DIABETES MELLITUS WITH HYPERGLYCEMIA Qualifiers: Diabetes mellitus roasterman insulin use: with roasterman use Qualified Code( s): E11.65 - Type 2 diabetes mellitus with hyperglycemia; Z79.4 - exterminator helper termite ( current) use of insulin; Z79.4 - exterminator helper termite (current) use of insulin; Z79.4 - exterminator helper termite (current) use of insulin; Z79.4 - exterminator helper termite (current) use of insulin
[2017-09-05 08:17] LABS: BASO % 0.6 % (0-2.0); EOS % 1.2 % (0-4.5); HEMATOCRIT 43.9 % (32.4-45.2); HEMOGLOBIN 14.2 GM/dL (10.7-15.3); LYMPH % 38.7 % (8-40); MCH 27.7 pg (25.7-33.7); MCHC 32.2 g/dl (32.0-36.0); MEAN PLT VOLUME 10.3 fl (7.5-11.1); MONO % 7.5 % (3.8-10.2); PLATELET COUNT 181 K/MM3 (134-434); RBC 5.11 M/mm3 (3.60-5.2); RDW 13.5 % (11.6-15.6); WHITE BLOOD COUNT 6.8 K/mm3 (4.0-10.0)
[2017-09-05 08:49] LABS: ALBUMIN 2.8 g/dl (3.4-5.0); ANION GAP 8 (8-16); BILIRUBIN,TOTAL 0.5 mg/dL (0.2-1.0); BLOOD UREA NITROGEN 15 mg/dL (7-18); CALCIUM 8.6 mg/dL (8.5-10.1); CHLORIDE 103 mmol/L (98-107); CO2 30 mmol/L (21-32); CREATININE 0.8 mg/dL (0.55-1.02); GLUCOSE,RANDOM 282 mg/dL (74-106); MAGNESIUM 1.8 mg/dL (1.8-2.4); POTASSIUM 3.7 mmol/L (3.5-5.1); SGOT/AST 15 U/L (15-37); SGPT/ALT 18 U/L (12-78); SODIUM 141 mmol/L (136-145); TOT PROT 6.3 g/dl (6.4-8.2)
[2017-09-05 08:50] LABS: ALK PHOS 118 U/L (45-117)
[2017-09-05] MEDS: CLOPIDOGREL BISULFATE 75 MG TABLET (FP) PO SCH (09:04)
[2017-09-05] MEDS: FUROSEMIDE 20 MG TABLET (FP) PO SCH (09:04)
[2017-09-05] MEDS: PANTOPRAZOLE SODIUM 40 MG VIAL IVPUSH SCH (09:04)
[2017-09-05] MEDS: SERTRALINE HCL 50 MG TABLET (FP) PO SCH (09:04)
[2017-09-05] MEDS: ASPIRIN 81 MG CHEWABLE TABLETS PO SCH (09:04)
--- NOTE | 2017-09-05 10:23 | PN ---
Physical Exam: SUBJECTIVE: Patient seen and examined OBJECTIVE: Vital Signs Period Temp Pulse Resp BP Sys/Ziegler Pulse Ox Last 24 Hr 98.0 F-98.7 F 79-88 16-18 136-177/57-99 92-97 GENERAL: Awake, alert, withdrawn. HEAD: Normal with no signs of trauma. EYES: PERRL, extraocular movements intact, sclera anicteric, conjunctiva clear. No ptosis. ENT: Ears normal, nares patent, oropharynx clear without exudates, moist mucous membranes. NECK: Trachea midline, full range of motion, supple. LUNGS: Breath sounds equal, clear to auscultation bilaterally, no wheezes, no crackles, no accessory muscle use. HEART: Regular rate and rhythm, S1, S2 without murmur, rub or gallop. ABDOMEN: Soft, obese, nontender, nondistended, normoactive bowel sounds, no guarding, no rebound UPPER EXTREMITIES: . No peripheral edema. LOWER EXTREMITIES: bilateral non pitting edema NEUROLOGICAL: delayed speech, withdrawn, flat affect Laboratory Results - last 24 hr 09/04/17 09/04/17 09/04/17 04:30 11:11 17:50 WBC RBC Hgb Hct MCV MCH MCHC RDW Plt Count MPV Neutrophils % Lymphocytes % Monocytes % Eosinophils % Basophils % Sodium Potassium Chloride Carbon Dioxide Anion Gap BUN Creatinine Creat Clearance w eGFR POC Glucometer 234 195 Random Glucose Calcium Magnesium Total Bilirubin AST ALT Alkaline Phosphatase Total Protein Albumin Ur Leukocyte Esterase Negative 09/04/17 09/05/17 09/05/17 21:45 06:03 07:30 WBC 6.8 RBC 5.11 Hgb 14.2 Hct 43.9 MCV 86.0 MCH 27.7 MCHC 32.2 RDW 13.5 Plt Count 181 MPV 10.3 Neutrophils % 52.0 Lymphocytes % 38.7 Monocytes % 7.5 Eosinophils % 1.2 Basophils % 0.6 Sodium Potassium Chloride Carbon Dioxide Anion Gap BUN Creatinine Creat Clearance w eGFR POC Glucometer 371 287 Random Glucose Calcium Magnesium Total Bilirubin AST ALT Alkaline Phosphatase Total Protein Albumin Ur Leukocyte Esterase 09/05/17 07:30 WBC RBC Hgb Hct MCV MCH MCHC RDW Plt Count MPV Neutrophils % Lymphocytes % Monocytes % Eosinophils % Basophils % Sodium 141 Potassium 3.7 Chloride 103 Carbon Dioxide 30 Anion Gap 8 BUN 15 D Creatinine 0.8 Creat Clearance w eGFR > 60 POC Glucometer Random Glucose 282 H D Calcium 8.6 Magnesium 1.8 Total Bilirubin 0.5 AST 15 D ALT 18 Alkaline Phosphatase 118 H Total Protein 6.3 L Albumin 2.8 L Ur Leukocyte Esterase Active Medications Generic Name Dose Route Start Last Admin Trade Name Freq PRN Reason Stop Dose Admin Aspirin 81 mg 09/03/17 18:30 09/05/17 09:04 Asa - PO 81 mg DAILY YOSI Administration Atorvastatin Calcium 80 mg 09/04/17 22:00 09/04/17 21:49 Lipitor - PO 80 mg HS YOSI Administration Clopidogrel Bisulfate 75 mg 09/04/17 17:45 09/05/17 09:04 Plavix - PO 75 mg DAILY YOSI Administration Furosemide 20 mg 09/03/17 18:30 09/05/17 09:04 Lasix - PO 20 mg DAILY YOSI Administration Heparin Sodium (Porcine) 5,000 unit 09/04/17 22:00 09/05/17 06:05 Heparin - SQ 5,000 unit TID YOSI Administration Insulin Aspart 1 vial 09/03/17 22:00 09/05/17 06:05 Novolog Vial Sliding Scale - SQ 6 units ACHS YOSI Administration Protocol Pantoprazole Sodium 40 mg 09/04/17 10:00 09/05/17 09:04 Protonix Iv IVPUSH 40 mg DAILY YOSI Administration Sertraline HCl 50 mg 09/04/17 18:00 09/05/17 09:04 Zoloft - PO 50 mg DAILY YOSI Administration ASSESSMENT/PLAN: Patient is a 52 year old female with a significant past medical history of HTN, IDDM, GERD, and morbid obesity. She presents with fatigue and somnolence. On admission she was found to have a left thalamic acute/subacute nonhemorrhagic infarct, and possibly a pontine acute nonhemorrhagic infarct. Imaging: MRI brain: acute infarct in the ventral left thalamus encroaching on the posterior limb of the left internal capsule with mild focal mass effect on the third ventricle; chronic infarcts bilateral thalami, left midbrain, and superior left hayley MRA brain: severe narrowing with attenuated flow in the distal P1 and proximal P2 segment of the left posterior cerebral artery, atherosclerosis v. vasculiti1/ 2 US carotid: mild atherosclerotic disease without evidence of hemodynamically significant stenosis Echo: impaired LV relaxation; RV normal; LAE; no atrial septal defect; mild MR; mild TR; trace PI Neuro: Acute/Subacute CVA MRI as above On ASA 81mg, Plavix daily Lipitor 80mg daily Neuro following Monitor Neuro status PT evaluation Speech and swallow as per protocol: dysphagia diet TSH, GI, Echo Cardiology: Hypertension, chronic Monitor BP in the setting of an acute CVA Home Losartan and HCTZ currently on hold Monitor BP Endocrine: Diabetes, Novolog sliding scale Home Levemir is on hold (home dose may be too high) Monitor blood sugars during hospitalization F.E.N. Fluids: PO intake adequate Electrolytes: replete as indicated Nutrition: dysphagia Prophylaxis: DVT prophylaxis: SCDs; subq heparin Physical therapy evaluation Dispo: continues to require inpatient care. Full code. Visit type - Emergency Visit Emergency Visit: Yes ED Registration Date: 09/03/17 Care time: The patient presented to the Emergency Department on the above date and was hospitalized for further evaluation of their emergent condition. - New Patient This patient is new to me today: Yes Date on this admission: 09/06/17 - Critical Care Critical Care patient: No - Discharge Referral Referred to [facility] Med P.C.: No
[2017-09-05 11:08] LABS: ERYTHROCYTE SEDIMENTATION RATE 29 mm/hr (0-30)
[2017-09-05] MEDS: ATORVASTATIN CA 80 MG TABLET (FP) PO SCH (21:53)
[2017-09-05] MEDS ORDERED: chlordiazePOXIDE 5 MG CAPSULE PO SCH (23:00)
[2017-09-06] MEDS: INSULIN SLIDING SCALE (NOVOLOG) 1 VIAL SQ SCH ×4 (06:32→22:06)
[2017-09-06] MEDS: HEPARIN NA (PORCINE) 5,000 UNITS/ML 1ML VIAL SQ SCH ×3 (06:32→22:06)
[2017-09-06] MEDS ORDERED: INSULIN (NOVOLOG) ASPART 100 UNITS/ML 10ML VIAL ONE ×2 (06:57→21:45)
[2017-09-06 07:30] LABS: ALBUMIN 2.8 g/dl (3.4-5.0); ANION GAP 9 (8-16); BLOOD UREA NITROGEN 17 mg/dL (7-18); CALCIUM 8.4 mg/dL (8.5-10.1); CHLORIDE 101 mmol/L (98-107); CO2 29 mmol/L (21-32); SODIUM 139 mmol/L (136-145)
[2017-09-06 07:34] LABS: BASO % 0.2 % (0-2.0); HEMATOCRIT 43.3 % (32.4-45.2); LYMPH % 31.8 % (8-40); MCHC 32.4 g/dl (32.0-36.0); MEAN CELL VOLUME 86.3 fl (80-96); MEAN PLT VOLUME 10.8 fl (7.5-11.1); MONO % 7.3 % (3.8-10.2); NEUT % 59.7 % (42.8-82.8); PLATELET COUNT 174 K/MM3 (134-434); RBC 5.02 M/mm3 (3.60-5.2); RDW 13.2 % (11.6-15.6)
[2017-09-06 07:38] LABS: ALK PHOS 132 U/L (45-117); BILIRUBIN,TOTAL 0.7 mg/dL (0.2-1.0); CREATININE 0.8 mg/dL (0.55-1.02); GLUCOSE,RANDOM 299 mg/dL (74-106); SGOT/AST 20 U/L (15-37); SGPT/ALT 24 U/L (12-78); TOT PROT 6.5 g/dl (6.4-8.2)
[2017-09-06] MEDS: ASPIRIN 81 MG CHEWABLE TABLETS PO SCH (09:32)
[2017-09-06] MEDS: CLOPIDOGREL BISULFATE 75 MG TABLET (FP) PO SCH (09:33)
[2017-09-06] MEDS: SERTRALINE HCL 50 MG TABLET (FP) PO SCH (09:33)
[2017-09-06] MEDS: FUROSEMIDE 20 MG TABLET (FP) PO SCH (09:33)
[2017-09-06] MEDS: PANTOPRAZOLE SODIUM 40 MG VIAL IVPUSH SCH (10:27)
[2017-09-06] MEDS: ATORVASTATIN CA 80 MG TABLET (FP) PO SCH (22:06)
--- NOTE | 2017-09-06 22:24 | PN ---
Progress Note, Physician History of Present Illness: No new complaints - Current Medication List Current Medications: Active Medications Aspirin (Asa -) 81 mg PO DAILY [facility] Last Admin: 09/06/17 09:32 Dose: 81 mg Atorvastatin Calcium (Lipitor -) 80 mg PO HS [facility] Last Admin: 09/06/17 22:06 Dose: 80 mg Clopidogrel Bisulfate (Plavix -) 75 mg PO DAILY [facility] Last Admin: 09/06/17 09:33 Dose: 75 mg Furosemide (Lasix -) 20 mg PO DAILY [facility] Last Admin: 09/06/17 09:33 Dose: 20 mg Heparin Sodium (Porcine) (Heparin -) 5,000 unit SQ TID [facility] Last Admin: 09/06/17 22:06 Dose: 5,000 unit Insulin Aspart (Novolog Vial Sliding Scale -) 1 vial SQ ACHS [facility] PRN Reason: Protocol Last Admin: 09/06/17 22:06 Dose: 8 units Pantoprazole Sodium (Protonix Iv) 40 mg IVPUSH DAILY [facility] Last Admin: 09/06/17 10:27 Dose: 40 mg Sertraline HCl (Zoloft -) 50 mg PO DAILY [facility] Last Admin: 09/06/17 09:33 Dose: 50 mg - Objective Vital Signs: Vital Signs Temperature 98.4 F 09/06/17 21:00 Pulse Rate 84 09/06/17 21:00 Respiratory Rate 18 09/06/17 21:00 Blood Pressure 170/78 09/06/17 21:00 O2 Sat by Pulse Oximetry (%) 95 09/06/17 18:00 Constitutional: Yes: Well Nourished HENT: Yes: WNL Neck: Yes: WNL, Supple Cardiovascular: Yes: WNL, Regular Rate and Rhythm Respiratory: Yes: WNL, Regular, CTA Bilaterally Gastrointestinal: Yes: WNL, Normal Bowel Sounds, Soft, Abdomen, Obese Extremities: Yes: WNL Edema: No Labs: CBC, BMP 09/06/17 06:00 09/06/17 06:00 INR, PTT INR 1.03 (0.82-1.09) 09/04/17 06:30 Problem List - Problems (1) CVA (cerebral vascular accident) Assessment/Plan: MRI showed acute/subacute Lt thalamic infarct Cont asa/lipitor/plavix PT eval Code(s): I63.9 - CEREBRAL INFARCTION, UNSPECIFIED (2) Diabetes Assessment/Plan: Cont sliding scale Start levemir HgA1c elevated at >12 Diabetes uncontrolled Code(s): E11.9 - TYPE 2 DIABETES MELLITUS WITHOUT COMPLICATIONS (3) HTN (hypertension) Assessment/Plan: Monitor BP wc was slightly elevated tonight Cardio consult Cont lasix Code(s): I10 - ESSENTIAL (PRIMARY) HYPERTENSION (4) GERD (gastroesophageal reflux disease) Assessment/Plan: Cont protonix Code(s): K21.9 - GASTRO-ESOPHAGEAL REFLUX DISEASE WITHOUT ESOPHAGITIS (5) Morbid obesity Code(s): E66.01 - MORBID (SEVERE) OBESITY DUE TO EXCESS CALORIES
[2017-09-07] MEDS: HEPARIN NA (PORCINE) 5,000 UNITS/ML 1ML VIAL SQ SCH ×3 (06:44→21:24)
[2017-09-07] MEDS: INSULIN SLIDING SCALE (NOVOLOG) 1 VIAL SQ SCH ×4 (06:44→21:16)
[2017-09-07] MEDS ORDERED: CHLORHEXIDINE GLUCONATE 4% CLEANSER FOR DECOLONIZATION TP SCH (07:32)
[2017-09-07] MEDS ORDERED: MUPIROCIN 2% TOPICAL OINTMENT FOR DECOLONIZATION NS SCH (07:32)
[2017-09-07 07:35] LABS: BASO % 0.4 % (0-2.0); EOS % 1.1 % (0-4.5); HEMATOCRIT 42.8 % (32.4-45.2); HEMOGLOBIN 13.7 GM/dL (10.7-15.3); LYMPH % 33.7 % (8-40); MCH 27.5 pg (25.7-33.7); MCHC 31.9 g/dl (32.0-36.0); MEAN PLT VOLUME 10.9 fl (7.5-11.1); MONO % 6.9 % (3.8-10.2); NEUT % 57.9 % (42.8-82.8); PLATELET COUNT 171 K/MM3 (134-434); RBC 4.98 M/mm3 (3.60-5.2); RDW 13.3 % (11.6-15.6); WHITE BLOOD COUNT 8.4 K/mm3 (4.0-10.0)
[2017-09-07 07:48] LABS: ALBUMIN 2.7 g/dl (3.4-5.0); ALK PHOS 127 U/L (45-117); ANION GAP 7 (8-16); BILIRUBIN,TOTAL 0.7 mg/dL (0.2-1.0); BLOOD UREA NITROGEN 19 mg/dL (7-18); CALCIUM 8.1 mg/dL (8.5-10.1); CHLORIDE 100 mmol/L (98-107); CO2 29 mmol/L (21-32); CREATININE 0.7 mg/dL (0.55-1.02); POTASSIUM 4.2 mmol/L (3.5-5.1); SGOT/AST 10 U/L (15-37); SGPT/ALT 22 U/L (12-78); SODIUM 136 mmol/L (136-145); TOT PROT 6.3 g/dl (6.4-8.2)
[2017-09-07 07:51] LABS: GLUCOSE,RANDOM 333 mg/dL (74-106)
--- NOTE | 2017-09-07 09:02 | CON.CARD ---
Consult Consult Specialty:: Cardiology Referred by:: Dr. Boo Reason for Consultation:: CVA - History of Present Illness Chief Complaint: CVA History of Present Illness: 52F with obesity, HTN, DM presented to ER with nausea and fatigue, noted to have slight facial asymmetry in ER. Imaging revealed acute CVA in left vental thalamus. She denies CP, palps, SOB or prior cardiac hx. No prior hx of AF. Denies recent illness. Denies prior h/o [place] or coronary disease. 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 Cardio/Vascular: Yes: HTN Gastrointestinal: Yes: GERD ...: No Endocrine: Yes: Diabetes Mellitus - Alcohol/Substance Use Hx Alcohol Use: No - Smoking History Smoking history: Never smoked Have you smoked in the past 12 months: No Aproximately how many cigarettes per day: 0 - Social History Usual Living Arrangement: With Spouse History of Recent Travel: No Home Medications - Allergies Allergies/Adverse Reactions: Allergies Allergy/AdvReac Type Severity Reaction Status Date / Time No Known Allergies Allergy Verified 09/03/17 13:38 - Home Medications Home Medications: Ambulatory Orders Aspirin [ASA -] 81 mg PO DAILY 01/23/16 Cefpodoxime Proxetil [Vantin -] 100 mg PO BID #20 tablet 01/23/16 Celecoxib [Celebrex] 200 mg PO DAILY 01/23/16 Furosemide [Lasix -] 20 mg PO DAILY 01/23/16 Insulin Detemir [Levemir Flextouch] 60 unit SQ BID 01/23/16 Losartan Potassium [Cozaar -] 25 mg PO DAILY 01/23/16 Metformin HCl 850 mg PO BID 01/23/16 Ibuprofen [Motrin -] 600 mg PO Q6H PRN #20 tablet 08/29/17 Ondansetron HCl [Zofran] 4 mg PO Q8H PRN #10 tablet 08/29/17 Family Disease History - Family Disease History Family History: Unremarkable (non-contributory to this presentation) Review of Systems Findings/Remarks: SEE HPI - Review of Systems Constitutional: reports: Weakness Neck: reports: No Symptoms Cardiovascular: reports: No Symptoms Respiratory: reports: No Symptoms Gastrointestinal: reports: Nausea Genitourinary: denies: No Symptoms, Burning, Discharge, Dysuria, Flank Pain, Frequency, Hematuria, Incontinence, Lesions, Menses, Pain, Testicular Mass, Testicular Pain, Testicular Swelling, Urgency, Vaginal Bleeding, Other Breasts: denies: No Symptoms Reported, See HPI, Breast Implants, Discharge from Nipple, Lumps, Pain, Skin Changes, Other Musculoskeletal: denies: No Symptoms, Back Pain, Crepitus, Decreased ROM, Extremity Pain, Joint Pain, Joint Swelling, Muscle Pain, Muscle Cramps, Muscle Weakness, Other Neurological: reports: Change in LOC, Confusion, Weakness Hematology/Lymphatic: denies: No Symptoms, Easily Bruised, Excessive Bleeding, Swollen Glands, Other Psychiatric: denies: No Symptoms, Altered Sleep Pattern, Anxiety, Depression, Hallucinations, Panic, Paranoia, Suicidal, Other - Risk Factors Known Risk Factors: Yes: Diabetes Mellitus, Hypercholesterolemia, Hypertension Vital Signs: Vital Signs Temperature 97.8 F 09/07/17 09:00 Pulse Rate 88 09/07/17 09:00 Respiratory Rate 20 09/07/17 09:00 Blood Pressure 150/79 09/07/17 09:00 O2 Sat by Pulse Oximetry (%) 95 09/06/17 21:00 Constitutional: Yes: No Distress, Calm Eyes: Yes: Conjunctiva Clear, EOM Intact Respiratory: Yes: CTA Bilaterally Gastrointestinal: Yes: Soft, Abdomen, Obese JVD: No Carotid Bruit: No PMI: Non-Displaced Heart Sounds: Yes: S1, S2 Edema: No Integumentary: Yes: WNL Neurological: Yes: Alert, Oriented ...Motor Strength: WNL Psychiatric: Yes: WNL - Other Data Labs, Other Data: CBC, BMP 09/07/17 06:00 09/07/17 06:00 INR, PTT INR 1.03 (0.82-1.09) 09/04/17 06:30 NSR 95bpm, Poor R wave progression, LAE Echo: Report Reviewed (Mild MR o/w negative, Mild MV thickening) Imaging - Results Chest X-ray: Report Reviewed, Image Reviewed Cat Scan: Report Reviewed MRI: Report Reviewed EKG: Image Reviewed Problem List - Problems (1) CVA (cerebral vascular accident) Code(s): I63.9 - CEREBRAL INFARCTION, UNSPECIFIED Qualifiers: CVA mechanism: occlusion Laterality of affected vessel: bilateral (2) Diabetes Code(s): E11.9 - TYPE 2 DIABETES MELLITUS WITHOUT COMPLICATIONS Qualifiers: Diabetes mellitus type: type 2 Diabetes mellitus complication status: with circulatory complication (3) HLD (hyperlipidemia) Code(s): E78.5 - HYPERLIPIDEMIA, UNSPECIFIED Qualifiers: Hyperlipidemia type: mixed hyperlipidemia Qualified Code(s): E78.2 - Mixed hyperlipidemia (4) HTN (hypertension) Code(s): I10 - ESSENTIAL (PRIMARY) HYPERTENSION Qualifiers: Hypertension type: essential hypertension Qualified Code(s): I10 - Essential (primary) hypertension (5) Morbid obesity Code(s): E66.01 - MORBID (SEVERE) OBESITY DUE TO EXCESS CALORIES Assessment/Plan IMP: Acute L. thalamic CVA DM/HTN/HL REC: Thus far, stroke work up is unrevealing including TTE, Carotid US and tele has not shown evidence of AF. 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 Cerebral atherosclerosis is likely secondary to DM/HTN/HL. Recommend antiplatelet Rx as per Neuro, with aggressive modification of risk factors (glucose, BP and lipids). If CHUCK is needed, can be arranged early next week as in or outpatient. An extended outpatient holter is also recommended. Thank you.
[2017-09-07] MEDS: SERTRALINE HCL 50 MG TABLET (FP) PO SCH (09:27)
[2017-09-07] MEDS: PANTOPRAZOLE SODIUM 40 MG VIAL IVPUSH SCH (09:27)
[2017-09-07] MEDS: FUROSEMIDE 20 MG TABLET (FP) PO SCH (09:28)
[2017-09-07] MEDS: ASPIRIN 81 MG CHEWABLE TABLETS PO SCH (09:28)
[2017-09-07] MEDS: CLOPIDOGREL BISULFATE 75 MG TABLET (FP) PO SCH (09:28)
--- NOTE | 2017-09-07 10:44 | PN ---
Progress Note, Physician Chief Complaint: stroke History of Present Illness: 52 year-old woman with a PMH significant for HTN, IDDM, GERD, and morbid obesity. Patient is unable to give a history to this provider and there are no family members present. On the basis of a chart review, the patient was seen in the ED last Saturday with a sore throat and otitis media. She was treated and released with a course of amoxicillin. Patient was BIBA today with a report weakness and fatigue x 5 days. denies focal weakness, numbness; no toxic habits; mild COOK CT head: 1.1 x 0.7 cm focus left thalamus suggestive of acute/subacute nonhemorrhage infarct; 0.7cm focus upper [place], acute nonhemorrhagic infarct v. 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 C/W baby asp + plavix for 3 months , baby asp thereafter statin PT/OT Health maintenance per primary team. Rush Giles MD - Current Medication List Current Medications: Active Medications Aspirin (Asa -) 81 mg PO DAILY [facility] Last Admin: 09/07/17 09:28 Dose: 81 mg Atorvastatin Calcium (Lipitor -) 80 mg PO HS [facility] Clopidogrel Bisulfate (Plavix -) 75 mg PO DAILY [facility] Last Admin: 09/07/17 09:28 Dose: 75 mg Furosemide (Lasix -) 20 mg PO DAILY [facility] Last Admin: 09/07/17 09:28 Dose: 20 mg Heparin Sodium (Porcine) (Heparin -) 5,000 unit SQ TID [facility] Last Admin: 09/07/17 06:44 Dose: 5,000 unit Insulin Aspart (Novolog Vial Sliding Scale -) 1 vial SQ ACHS [facility] PRN Reason: Protocol Insulin Detemir (Levemir Vial) 30 units SQ HS [facility] Pantoprazole Sodium (Protonix Iv) 40 mg IVPUSH DAILY [facility] Last Admin: 09/07/17 09:27 Dose: 40 mg Sertraline HCl (Zoloft -) 50 mg PO DAILY [facility] Last Admin: 09/07/17 09:27 Dose: 50 mg - Objective Vital Signs: Vital Signs Temperature 97.8 F 09/07/17 09:00 Pulse Rate 88 09/07/17 09:00 Respiratory Rate 20 09/07/17 09:00 Blood Pressure 150/79 09/07/17 09:00 O2 Sat by Pulse Oximetry (%) 95 09/06/17 21:00 Labs: CBC, BMP 09/07/17 06:00 09/07/17 06:00 INR, PTT INR 1.03 (0.82-1.09) 09/04/17 06:30
[2017-09-07] MEDS ORDERED: INSULIN (NOVOLOG) ASPART 100 UNITS/ML 10ML VIAL SQ ONE (12:12)
--- NOTE | 2017-09-07 12:30 | HOSP ---
Physical Examination Vital Signs: Vital Signs Temperature 97.8 F 09/07/17 09:00 Pulse Rate 88 09/07/17 09:00 Respiratory Rate 20 09/07/17 09:00 Blood Pressure 150/79 09/07/17 09:00 O2 Sat by Pulse Oximetry (%) 97 09/07/17 09:00 Labs: CBC, BMP 09/07/17 06:00 Hospitalist Encounter Assessment: Paged by RN and was notified that patient's Glucose level was >400. RN reports she tried contacting PCP several times with no response and the sliding scale instructions is to call Hospitalist if glucose level >400. VITALS: BP: 150/87 HR: 90's 02%: 98% RA GLUCOSE: [id number] PHYSICAL EXAM: GENERAL: Awake, Alert, withdrawn HEART: RRR LUNGS: CTA bilaterally EXTREMITIES: No pitting edema A&P Hyperglycemia -Patient was given Levemir 30 units yesterday according to RN -12 units of Novolog stat ordered -BMP revealed no anion gap -Asked RN to recheck glucose levels an hour after insulin administration -Will contact primary care physician Visit type - Emergency Visit Emergency Visit: Yes ED Registration Date: 09/03/17 Care time: The patient presented to the Emergency Department on the above date and was hospitalized for further evaluation of their emergent condition. - New Patient This patient is new to me today: Yes Date on this admission: 09/07/17 - Critical Care Critical Care patient: No
[2017-09-07] MEDS ORDERED: INSULIN (NOVOLOG) ASPART 100 UNITS/ML 10ML VIAL ONE (17:49)
[2017-09-07] MEDS: INSULIN DETEMIR 100 UNITS/ML MDV SQ SCH (21:24)
[2017-09-07] MEDS: ATORVASTATIN CA 80 MG TABLET (FP) PO SCH (21:24)
--- NOTE | 2017-09-07 22:36 | PN ---
Progress Note, Physician History of Present Illness: No new complaints Dysphasia present - Current Medication List Current Medications: Active Medications Aspirin (Asa -) 81 mg PO DAILY [facility] Last Admin: 09/07/17 09:28 Dose: 81 mg Atorvastatin Calcium (Lipitor -) 80 mg PO HS [facility] Last Admin: 09/07/17 21:24 Dose: 80 mg Clopidogrel Bisulfate (Plavix -) 75 mg PO DAILY [facility] Last Admin: 09/07/17 09:28 Dose: 75 mg Furosemide (Lasix -) 20 mg PO DAILY [facility] Last Admin: 09/07/17 09:28 Dose: 20 mg Heparin Sodium (Porcine) (Heparin -) 5,000 unit SQ TID [facility] Last Admin: 09/07/17 21:24 Dose: 5,000 unit Insulin Aspart (Novolog Vial Sliding Scale -) 1 vial SQ ACHS [facility] PRN Reason: Protocol Last Admin: 09/07/17 21:16 Dose: 8 units Insulin Detemir (Levemir Vial) 40 units SQ HS [facility] Last Admin: 09/07/17 21:24 Dose: 40 units Pantoprazole Sodium (Protonix Iv) 40 mg IVPUSH DAILY [facility] Last Admin: 09/07/17 09:27 Dose: 40 mg Sertraline HCl (Zoloft -) 50 mg PO DAILY [facility] Last Admin: 09/07/17 09:27 Dose: 50 mg - Objective Vital Signs: Vital Signs Temperature 98.8 F 09/07/17 18:00 Pulse Rate 83 09/07/17 18:00 Respiratory Rate 18 09/07/17 18:00 Blood Pressure 138/76 09/07/17 18:00 O2 Sat by Pulse Oximetry (%) 97 09/07/17 09:00 Constitutional: Yes: Well Nourished HENT: Yes: WNL Neck: Yes: WNL, Supple Cardiovascular: Yes: WNL, Regular Rate and Rhythm Respiratory: Yes: WNL, Regular, CTA Bilaterally Gastrointestinal: Yes: WNL, Normal Bowel Sounds, Soft, Abdomen, Obese Extremities: Yes: WNL Edema: No Labs: CBC, BMP 09/07/17 06:00 09/07/17 12:18 INR, PTT INR 1.03 (0.82-1.09) 09/04/17 06:30 Problem List - Problems (1) CVA (cerebral vascular accident) Assessment/Plan: MRI showed acute/subacute Lt thalamic infarct Cont asa/lipitor/plavix PT eval Code(s): I63.9 - CEREBRAL INFARCTION, UNSPECIFIED Qualifiers: CVA mechanism: occlusion Laterality of affected vessel: bilateral (2) Diabetes Assessment/Plan: Cont sliding scale Cont levemir HgA1c elevated at >12 Diabetes uncontrolled Code(s): E11.9 - TYPE 2 DIABETES MELLITUS WITHOUT COMPLICATIONS Qualifiers: Diabetes mellitus type: type 2 Diabetes mellitus complication status: with circulatory complication (3) HTN (hypertension) Assessment/Plan: BP stable Cont lasix Code(s): I10 - ESSENTIAL (PRIMARY) HYPERTENSION Qualifiers: Hypertension type: essential hypertension Qualified Code(s): I10 - Essential (primary) hypertension (4) GERD (gastroesophageal reflux disease) Assessment/Plan: Cont protonix Code(s): K21.9 - GASTRO-ESOPHAGEAL REFLUX DISEASE WITHOUT ESOPHAGITIS (5) Morbid obesity Code(s): E66.01 - MORBID (SEVERE) OBESITY DUE TO EXCESS CALORIES
[2017-09-08] MEDS: HEPARIN NA (PORCINE) 5,000 UNITS/ML 1ML VIAL SQ SCH ×3 (06:44→21:19)
[2017-09-08] MEDS: INSULIN SLIDING SCALE (NOVOLOG) 1 VIAL SQ SCH ×4 (06:45→21:19)
[2017-09-08] MEDS: FUROSEMIDE 20 MG TABLET (FP) PO SCH (09:48)
[2017-09-08] MEDS: ASPIRIN 81 MG CHEWABLE TABLETS PO SCH (09:49)
[2017-09-08] MEDS: CLOPIDOGREL BISULFATE 75 MG TABLET (FP) PO SCH (09:49)
[2017-09-08] MEDS: SERTRALINE HCL 50 MG TABLET (FP) PO SCH (09:49)
[2017-09-08] MEDS: PANTOPRAZOLE SODIUM 40 MG VIAL IVPUSH SCH (09:49)
--- NOTE | 2017-09-08 10:01 | PN ---
Progress Note, Physician Chief Complaint: no new complaints TELE: NSR, no evidence of AF - Current Medication List Current Medications: Active Medications Aspirin (Asa -) 81 mg PO DAILY [facility] Last Admin: 09/08/17 09:49 Dose: 81 mg Atorvastatin Calcium (Lipitor -) 80 mg PO HS [facility] Last Admin: 09/07/17 21:24 Dose: 80 mg Clopidogrel Bisulfate (Plavix -) 75 mg PO DAILY [facility] Last Admin: 09/08/17 09:49 Dose: 75 mg Furosemide (Lasix -) 20 mg PO DAILY [facility] Last Admin: 09/08/17 09:48 Dose: 20 mg Heparin Sodium (Porcine) (Heparin -) 5,000 unit SQ TID [facility] Last Admin: 09/08/17 06:44 Dose: 5,000 unit Insulin Aspart (Novolog Vial Sliding Scale -) 1 vial SQ ACHS [facility] PRN Reason: Protocol Last Admin: 09/08/17 06:45 Dose: 4 units Insulin Detemir (Levemir Vial) 40 units SQ HS [facility] Last Admin: 09/07/17 21:24 Dose: 40 units Pantoprazole Sodium (Protonix Iv) 40 mg IVPUSH DAILY [facility] Last Admin: 09/08/17 09:49 Dose: 40 mg Sertraline HCl (Zoloft -) 50 mg PO DAILY [facility] Last Admin: 09/08/17 09:49 Dose: 50 mg - Objective Vital Signs: Vital Signs Temperature 97.8 F 09/08/17 09:04 Pulse Rate 100 H 09/08/17 09:04 Respiratory Rate 20 09/08/17 09:04 Blood Pressure 140/73 09/08/17 09:04 O2 Sat by Pulse Oximetry (%) 97 09/07/17 21:00 Constitutional: Yes: No Distress, Calm Eyes: Yes: Conjunctiva Clear Cardiovascular: Yes: Regular Rate and Rhythm Respiratory: Yes: CTA Bilaterally Gastrointestinal: Yes: Soft Edema: No Neurological: Yes: Other (right facial droop) Labs: CBC, BMP 09/07/17 06:00 09/07/17 12:18 INR, PTT INR 1.03 (0.82-1.09) 09/04/17 06:30 - ....Imaging EKG: Image Reviewed Problem List - Problems (1) CVA (cerebral vascular accident) Code(s): I63.9 - CEREBRAL INFARCTION, UNSPECIFIED Qualifiers: CVA mechanism: occlusion Laterality of affected vessel: bilateral (2) Diabetes Code(s): E11.9 - TYPE 2 DIABETES MELLITUS WITHOUT COMPLICATIONS Qualifiers: Diabetes mellitus type: type 2 Diabetes mellitus complication status: with circulatory complication (3) HLD (hyperlipidemia) Code(s): E78.5 - HYPERLIPIDEMIA, UNSPECIFIED Qualifiers: Hyperlipidemia type: mixed hyperlipidemia Qualified Code(s): E78.2 - Mixed hyperlipidemia (4) HTN (hypertension) Code(s): I10 - ESSENTIAL (PRIMARY) HYPERTENSION Qualifiers: Hypertension type: essential hypertension Qualified Code(s): I10 - Essential (primary) hypertension (5) Morbid obesity Code(s): E66.01 - MORBID (SEVERE) OBESITY DUE TO EXCESS CALORIES Assessment/Plan IMP: Acute L. thalamic CVA DM/HTN/HL REC: Thus far, stroke work up is unrevealing including TTE, Carotid US and tele has not shown evidence of AF. 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 Cerebral atherosclerosis is likely secondary to DM/HTN/HL. Recommend antiplatelet Rx as per Neuro, with aggressive modification of risk factors (glucose, BP and lipids). An extended outpatient holter is also recommended F/u with in office in 1-2 weeks post discharge.
[2017-09-08] MEDS ORDERED: INSULIN (NOVOLOG) ASPART 100 UNITS/ML 10ML VIAL ONE (21:17)
[2017-09-08] MEDS: INSULIN DETEMIR 100 UNITS/ML MDV SQ SCH (21:18)
[2017-09-08] MEDS: ATORVASTATIN CA 80 MG TABLET (FP) PO SCH (21:19)
--- NOTE | 2017-09-08 22:57 | PN ---
Progress Note, Physician History of Present Illness: Pt still w/ some dysphasia - Current Medication List Current Medications: Active Medications Aspirin (Asa -) 81 mg PO DAILY [facility] Last Admin: 09/08/17 09:49 Dose: 81 mg Atorvastatin Calcium (Lipitor -) 80 mg PO HS [facility] Last Admin: 09/08/17 21:19 Dose: 80 mg Clopidogrel Bisulfate (Plavix -) 75 mg PO DAILY [facility] Last Admin: 09/08/17 09:49 Dose: 75 mg Furosemide (Lasix -) 20 mg PO DAILY [facility] Last Admin: 09/08/17 09:48 Dose: 20 mg Heparin Sodium (Porcine) (Heparin -) 5,000 unit SQ TID [facility] Last Admin: 09/08/17 21:19 Dose: 5,000 unit Insulin Aspart (Novolog Vial Sliding Scale -) 1 vial SQ ACHS [facility] PRN Reason: Protocol Last Admin: 09/08/17 21:19 Dose: 8 units Insulin Detemir (Levemir Vial) 40 units SQ HS [facility] Last Admin: 09/08/17 21:18 Dose: 40 units Pantoprazole Sodium (Protonix Iv) 40 mg IVPUSH DAILY [facility] Last Admin: 09/08/17 09:49 Dose: 40 mg Sertraline HCl (Zoloft -) 50 mg PO DAILY [facility] Last Admin: 09/08/17 09:49 Dose: 50 mg - Objective Vital Signs: Vital Signs Temperature 98.5 F 09/08/17 17:41 Pulse Rate 86 09/08/17 17:41 Respiratory Rate 20 09/08/17 17:41 Blood Pressure 142/91 09/08/17 17:41 O2 Sat by Pulse Oximetry (%) 97 09/08/17 09:00 HENT: Yes: WNL Neck: Yes: WNL, Supple Cardiovascular: Yes: WNL, Regular Rate and Rhythm Respiratory: Yes: WNL, Regular, CTA Bilaterally Gastrointestinal: Yes: WNL, Normal Bowel Sounds, Soft, Abdomen, Obese Extremities: Yes: WNL Edema: No Labs: CBC, BMP 09/07/17 06:00 09/07/17 12:18 INR, PTT INR 1.03 (0.82-1.09) 09/04/17 06:30 Problem List - Problems (1) CVA (cerebral vascular accident) Assessment/Plan: MRI showed acute/subacute Lt thalamic infarct Cont asa/lipitor/plavix PT eval DC planning for am Code(s): I63.9 - CEREBRAL INFARCTION, UNSPECIFIED Qualifiers: CVA mechanism: occlusion Laterality of affected vessel: bilateral (2) Diabetes Assessment/Plan: Cont sliding scale Cont levemir Add metformin HgA1c elevated at >12 Diabetes uncontrolled Code(s): E11.9 - TYPE 2 DIABETES MELLITUS WITHOUT COMPLICATIONS Qualifiers: Diabetes mellitus type: type 2 Diabetes mellitus complication status: with circulatory complication (3) HTN (hypertension) Assessment/Plan: BP stable Cont lasix Code(s): I10 - ESSENTIAL (PRIMARY) HYPERTENSION Qualifiers: Hypertension type: essential hypertension Qualified Code(s): I10 - Essential (primary) hypertension (4) GERD (gastroesophageal reflux disease) Assessment/Plan: Cont protonix Code(s): K21.9 - GASTRO-ESOPHAGEAL REFLUX DISEASE WITHOUT ESOPHAGITIS (5) Morbid obesity Code(s): E66.01 - MORBID (SEVERE) OBESITY DUE TO EXCESS CALORIES (6) Depression Assessment/Plan: Cont zoloft Code(s): F32.9 - MAJOR DEPRESSIVE DISORDER, SINGLE EPISODE, UNSPECIFIED
[2017-09-08] MEDS: metFORMIN HCL 500 MG TABLET (FP) PO SCH (23:15)
[2017-09-09] MEDS: INSULIN SLIDING SCALE (NOVOLOG) 1 VIAL SQ SCH ×4 (06:42→21:09)
[2017-09-09] MEDS: metFORMIN HCL 500 MG TABLET (FP) PO SCH ×2 (06:42→17:19)
[2017-09-09] MEDS: HEPARIN NA (PORCINE) 5,000 UNITS/ML 1ML VIAL SQ SCH ×3 (06:42→21:08)
--- NOTE | 2017-09-09 07:54 | PN ---
Progress Note, Physician Chief Complaint: confusion History of Present Illness: More alert, now knows that she was confused on admission. - Current Medication List Current Medications: Active Medications Aspirin (Asa -) 81 mg PO DAILY [facility] Last Admin: 09/08/17 09:49 Dose: 81 mg Atorvastatin Calcium (Lipitor -) 80 mg PO HS [facility] Last Admin: 09/08/17 21:19 Dose: 80 mg Clopidogrel Bisulfate (Plavix -) 75 mg PO DAILY [facility] Last Admin: 09/08/17 09:49 Dose: 75 mg Furosemide (Lasix -) 20 mg PO DAILY [facility] Last Admin: 09/08/17 09:48 Dose: 20 mg Heparin Sodium (Porcine) (Heparin -) 5,000 unit SQ TID [facility] Last Admin: 09/09/17 06:42 Dose: 5,000 unit Insulin Aspart (Novolog Vial Sliding Scale -) 1 vial SQ ACHS [facility] PRN Reason: Protocol Last Admin: 09/09/17 06:42 Dose: 4 units Insulin Detemir (Levemir Vial) 40 units SQ [facility] Last Admin: 09/08/17 21:18 Dose: 40 units Metformin HCl (Glucophage -) 1,000 mg PO BID@0700,1630 [facility] Last Admin: 09/09/17 06:42 Dose: 1,000 mg Pantoprazole Sodium (Protonix Iv) 40 mg IVPUSH DAILY [facility] Last Admin: 09/08/17 09:49 Dose: 40 mg Sertraline HCl (Zoloft -) 50 mg PO DAILY [facility] Last Admin: 09/08/17 09:49 Dose: 50 mg - Objective Vital Signs: Vital Signs Temperature 97.9 F 09/09/17 06:00 Pulse Rate 80 09/09/17 06:00 Respiratory Rate 20 09/09/17 06:00 Blood Pressure 130/73 09/09/17 06:00 O2 Sat by Pulse Oximetry (%) 97 09/08/17 21:00 Neurological: Yes: Alert, Facial Droop (mild on right, may be baseline) Labs: CBC, BMP 09/07/17 06:00 09/07/17 12:18 INR, PTT INR 1.03 (0.82-1.09) 09/04/17 06:30 - ....Imaging Cat Scan: Report Reviewed, Image Reviewed MRI: Report Reviewed, Image Reviewed Problem List - Problems (1) Insulin dependent diabetes mellitus Code(s): E11.9 - TYPE 2 DIABETES MELLITUS WITHOUT COMPLICATIONS; Z79.4 - CUSTODIAL (CURRENT) USE OF INSULIN (2) Hyperglycemia Code(s): R73.9 - HYPERGLYCEMIA, UNSPECIFIED (3) CVA (cerebral vascular accident) Code(s): I63.9 - CEREBRAL INFARCTION, UNSPECIFIED Qualifiers: CVA mechanism: occlusion Laterality of affected vessel: bilateral (4) Diabetes Code(s): E11.9 - TYPE 2 DIABETES MELLITUS WITHOUT COMPLICATIONS Qualifiers: Diabetes mellitus type: type 2 Diabetes mellitus complication status: with circulatory complication Assessment/Plan thrombotic infarction in patient with several prior lacunar infarctions. Longstanding diabetes and obesity. Would add homocysteine level in this patient with advanced atherosclerotic disease, but likely due to her obesity and diabetes.
[2017-09-09] MEDS: FUROSEMIDE 20 MG TABLET (FP) PO SCH (11:04)
[2017-09-09] MEDS: PANTOPRAZOLE SODIUM 40 MG VIAL IVPUSH SCH (11:04)
[2017-09-09] MEDS: ASPIRIN 81 MG CHEWABLE TABLETS PO SCH (11:04)
[2017-09-09] MEDS: CLOPIDOGREL BISULFATE 75 MG TABLET (FP) PO SCH (11:04)
[2017-09-09] MEDS: SERTRALINE HCL 50 MG TABLET (FP) PO SCH (11:04)
--- NOTE | 2017-09-09 11:20 | PN ---
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 Moderate anomia during propositional speech tasks, but with confrontation naming intact. o x 3.Able to follow complex 2 vstage commands. Swallowing intact. Moderate impairment of functional oral reading with many errors. Pt reports reading was fully functional premorbidly. IMP: Mild to moderate Aphasia Consider Homecare Speech tx upon d/c followed by OPD sp tx at [place].
--- NOTE | 2017-09-09 11:45 | PN ---
Progress Note, Physician History of Present Illness: seen and examined today in nad. no overnight events. no new complaints. - Current Medication List Current Medications: Active Medications Aspirin (Asa -) 81 mg PO DAILY [facility] Last Admin: 09/09/17 11:04 Dose: 81 mg Atorvastatin Calcium (Lipitor -) 80 mg PO HS [facility] Last Admin: 09/08/17 21:19 Dose: 80 mg Clopidogrel Bisulfate (Plavix -) 75 mg PO DAILY [facility] Last Admin: 09/09/17 11:04 Dose: 75 mg Furosemide (Lasix -) 20 mg PO DAILY [facility] Last Admin: 09/09/17 11:04 Dose: 20 mg Heparin Sodium (Porcine) (Heparin -) 5,000 unit SQ TID [facility] Last Admin: 09/09/17 06:42 Dose: 5,000 unit Insulin Aspart (Novolog Vial Sliding Scale -) 1 vial SQ [facility] PRN Reason: Protocol Last Admin: 09/09/17 06:42 Dose: 4 units Insulin Detemir (Levemir Vial) 40 units SQ [facility] Last Admin: 09/08/17 21:18 Dose: 40 units Metformin HCl (Glucophage -) 1,000 mg PO BID@0700,1630 [facility] Last Admin: 09/09/17 06:42 Dose: 1,000 mg Pantoprazole Sodium (Protonix Iv) 40 mg IVPUSH DAILY [facility] Last Admin: 09/09/17 11:04 Dose: 40 mg Sertraline HCl (Zoloft -) 50 mg PO DAILY [facility] Last Admin: 09/09/17 11:04 Dose: 50 mg - Objective Vital Signs: Vital Signs Temperature 97.9 F 09/09/17 06:00 Pulse Rate 80 09/09/17 06:00 Respiratory Rate 20 09/09/17 06:00 Blood Pressure 130/73 09/09/17 06:00 O2 Sat by Pulse Oximetry (%) 97 09/08/17 21:00 Constitutional: Yes: No Distress, Calm, Obese Eyes: Yes: Conjunctiva Clear, EOM Intact, PERRL HENT: Yes: Atraumatic, Normocephalic Neck: Yes: Supple, Trachea Midline Cardiovascular: Yes: Regular Rate and Rhythm, S1, S2. No: Bradycardia, Tachycardia, Pulse Irregular, Bruit, JVD, Gallop, Murmur, Rub, S3, S4, Varicosities Respiratory: Yes: Regular, CTA Bilaterally. No: Rales, Rhonchi, Wheezes Gastrointestinal: Yes: Normal Bowel Sounds, Soft. No: Distention, Tenderness Breast(s): Yes: Gynecomastia Extremities: Yes: WNL Edema: No Peripheral Pulses WNL: Yes Peripheral Pulses: Left Doralis Pedis: 2+, Right Dorsalis Pedis: 2+ Neurological: Yes: Alert, Babinski negative Psychiatric: Yes: Alert, Oriented Labs: CBC, BMP 09/07/17 06:00 09/07/17 12:18 INR, PTT INR 1.03 (0.82-1.09) 09/04/17 06:30 - ....Imaging Chest X-ray: Report Reviewed, Image Reviewed EKG: Report Reviewed, Image Reviewed Other: Report Reviewed, Image Reviewed (tele-nsr, apcs, pvcs, no sig arrhythmias ) Assessment/Plan IMP: Acute L. 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 -antiplatelet Rx as per Neuro reccs -currently receiving ASA, Plavix, Lipitor -aggressive modification of risk factors (glucose, BP and lipids). -recc close outpatient f/up and plan for extended outpatient event monitor vs loop recorder implant to further monitor for occult arrythmia
[2017-09-09] MEDS ORDERED: PT OWN MED DRAWER 7, Y5N ONE (17:26)
--- NOTE | 2017-09-09 20:06 | PN ---
Progress Note, Physician - Current Medication List Current Medications: Active Medications Aspirin (Asa -) 81 mg PO DAILY [facility] Last Admin: 09/09/17 11:04 Dose: 81 mg Atorvastatin Calcium (Lipitor -) 80 mg PO HS [facility] Last Admin: 09/08/17 21:19 Dose: 80 mg Clopidogrel Bisulfate (Plavix -) 75 mg PO DAILY [facility] Last Admin: 09/09/17 11:04 Dose: 75 mg Furosemide (Lasix -) 20 mg PO DAILY [facility] Last Admin: 09/09/17 11:04 Dose: 20 mg Heparin Sodium (Porcine) (Heparin -) 5,000 unit SQ TID [facility] Last Admin: 09/09/17 14:06 Dose: 5,000 unit Insulin Aspart (Novolog Vial Sliding Scale -) 1 vial SQ [facility] PRN Reason: Protocol Last Admin: 09/09/17 17:21 Dose: 4 units Insulin Detemir (Levemir Vial) 40 units SQ HS [facility] Last Admin: 09/08/17 21:18 Dose: 40 units Metformin HCl (Glucophage -) 1,000 mg PO BID@0700,1630 [facility] Last Admin: 09/09/17 17:19 Dose: 1,000 mg Pantoprazole Sodium (Protonix Iv) 40 mg IVPUSH DAILY [facility] Last Admin: 09/09/17 11:04 Dose: 40 mg Sertraline HCl (Zoloft -) 50 mg PO DAILY [facility] Last Admin: 09/09/17 11:04 Dose: 50 mg - Objective Vital Signs: Vital Signs Temperature 98.1 F 09/09/17 19:03 Pulse Rate 80 09/09/17 19:03 Respiratory Rate 18 09/09/17 19:03 Blood Pressure 137/73 09/09/17 19:03 O2 Sat by Pulse Oximetry (%) 97 09/09/17 10:00 Labs: CBC, BMP 09/07/17 06:00 09/07/17 12:18 INR, PTT INR 1.03 (0.82-1.09) 09/04/17 06:30 Problem List - Problems (1) CVA (cerebral vascular accident) Code(s): I63.9 - CEREBRAL INFARCTION, UNSPECIFIED Qualifiers: CVA mechanism: occlusion Laterality of affected vessel: bilateral (2) Diabetes Code(s): E11.9 - TYPE 2 DIABETES MELLITUS WITHOUT COMPLICATIONS Qualifiers: Diabetes mellitus type: type 2 Diabetes mellitus complication status: with circulatory complication (3) HTN (hypertension) Code(s): I10 - ESSENTIAL (PRIMARY) HYPERTENSION Qualifiers: Hypertension type: essential hypertension Qualified Code(s): I10 - Essential (primary) hypertension (4) GERD (gastroesophageal reflux disease) Code(s): K21.9 - GASTRO-ESOPHAGEAL REFLUX DISEASE WITHOUT ESOPHAGITIS (5) Morbid obesity Code(s): E66.01 - MORBID (SEVERE) OBESITY DUE TO EXCESS CALORIES
[2017-09-09] MEDS: INSULIN DETEMIR 100 UNITS/ML MDV SQ SCH (21:08)
[2017-09-09] MEDS: ATORVASTATIN CA 80 MG TABLET (FP) PO SCH (21:08)
[2017-09-10] MEDS: metFORMIN HCL 500 MG TABLET (FP) PO SCH (06:21)
[2017-09-10] MEDS: HEPARIN NA (PORCINE) 5,000 UNITS/ML 1ML VIAL SQ SCH (06:21)
[2017-09-10] MEDS: INSULIN SLIDING SCALE (NOVOLOG) 1 VIAL SQ SCH (06:21)
--- NOTE | 2017-09-10 09:30 | PN ---
Progress Note, Physician Chief Complaint: alert and oriented TELE: NSR - Current Medication List Current Medications: Active Medications Aspirin (Asa -) 81 mg PO DAILY [facility] Last Admin: 09/09/17 11:04 Dose: 81 mg Atorvastatin Calcium (Lipitor -) 80 mg PO HS [facility] Last Admin: 09/09/17 21:08 Dose: 80 mg Clopidogrel Bisulfate (Plavix -) 75 mg PO DAILY [facility] Last Admin: 09/09/17 11:04 Dose: 75 mg Furosemide (Lasix -) 20 mg PO DAILY [facility] Last Admin: 09/09/17 11:04 Dose: 20 mg Heparin Sodium (Porcine) (Heparin -) 5,000 unit SQ TID [facility] Last Admin: 09/10/17 06:21 Dose: 5,000 unit Insulin Aspart (Novolog Vial Sliding Scale -) 1 vial SQ [facility] PRN Reason: Protocol Last Admin: 09/10/17 06:21 Dose: 4 units Insulin Detemir (Levemir Vial) 40 units SQ HS [facility] Last Admin: 09/09/17 21:08 Dose: 40 units Metformin HCl (Glucophage -) 1,000 mg PO BID@0700,1630 [facility] Last Admin: 09/10/17 06:21 Dose: 1,000 mg Pantoprazole Sodium (Protonix Iv) 40 mg IVPUSH DAILY [facility] Last Admin: 09/09/17 11:04 Dose: 40 mg Sertraline HCl (Zoloft -) 50 mg PO DAILY [facility] Last Admin: 09/09/17 11:04 Dose: 50 mg - Objective Vital Signs: Vital Signs Temperature 98.7 F 09/10/17 06:00 Pulse Rate 79 09/10/17 06:00 Respiratory Rate 18 09/10/17 06:00 Blood Pressure 139/70 09/10/17 06:00 O2 Sat by Pulse Oximetry (%) 92 L 09/09/17 21:00 Constitutional: Yes: No Distress Cardiovascular: Yes: Regular Rate and Rhythm Respiratory: Yes: CTA Bilaterally Gastrointestinal: Yes: Soft Edema: No Neurological: Yes: Alert, Oriented Labs: CBC, BMP 09/07/17 06:00 09/07/17 12:18 INR, PTT INR 1.03 (0.82-1.09) 09/04/17 06:30 - ....Imaging EKG: Image Reviewed Problem List - Problems (1) CVA (cerebral vascular accident) Code(s): I63.9 - CEREBRAL INFARCTION, UNSPECIFIED Qualifiers: CVA mechanism: occlusion Laterality of affected vessel: bilateral (2) Diabetes Code(s): E11.9 - TYPE 2 DIABETES MELLITUS WITHOUT COMPLICATIONS Qualifiers: Diabetes mellitus type: type 2 Diabetes mellitus complication status: with circulatory complication (3) HLD (hyperlipidemia) Code(s): E78.5 - HYPERLIPIDEMIA, UNSPECIFIED Qualifiers: Hyperlipidemia type: mixed hyperlipidemia Qualified Code(s): E78.2 - Mixed hyperlipidemia (4) HTN (hypertension) Code(s): I10 - ESSENTIAL (PRIMARY) HYPERTENSION Qualifiers: Hypertension type: essential hypertension Qualified Code(s): I10 - Essential (primary) hypertension (5) Morbid obesity Code(s): E66.01 - MORBID (SEVERE) OBESITY DUE TO EXCESS CALORIES Assessment/Plan IMP: Acute L. thalamic CVA DM/HTN/HL REC: -No potential cardiac source of embolism identified thus far including TTE, Carotid US, and tele -MRA showed L. YARDER stenosis -Cerebral atherosclerosis likely secondary to DM/HTN/HL. -antiplatelet Rx as per Neuro reccs -currently receiving ASA, Plavix, Lipitor -aggressive modification of risk factors (glucose, BP and lipids). -recc close outpatient f/up and plan for extended outpatient event monitor vs loop recorder implant to further monitor for occult arrythmia
[2017-09-10] MEDS: ASPIRIN 81 MG CHEWABLE TABLETS PO SCH (09:42)
[2017-09-10] MEDS: PANTOPRAZOLE SODIUM 40 MG VIAL IVPUSH SCH (09:42)
[2017-09-10] MEDS: CLOPIDOGREL BISULFATE 75 MG TABLET (FP) PO SCH (09:42)
[2017-09-10] MEDS: SERTRALINE HCL 50 MG TABLET (FP) PO SCH (09:42)
[2017-09-10] MEDS: FUROSEMIDE 20 MG TABLET (FP) PO SCH (09:42)
[2017-09-10 09:47] VITALS: BP 129/68; PULSE 83; TEMP 98.2
--- NOTE | 2017-09-10 10:17 | PN ---
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 Pt is oriented and appropriate, intermittently struggling to express herself with word finding diffculty and errors. Moderate anomia during propositional speech tasks, but with confrontation naming intact. o x 3.Able to follow complex 2 stage commands. Swallowing intact. Moderate impairment of functional oral reading with many errors. Pt reports reading was fully functional premorbidly. IMP: Mild to moderate Aphasia Selected Entries 09/09/17 09/09/17 09/09/17 02:00 06:00 09:42 Breakfast 100% Supper Temperature 98.0 F 97.9 F 09/09/17 09/09/17 09/09/17 10:00 14:00 19:03 Breakfast Supper Temperature 97.9 F 97.3 F L 98.1 F 09/09/17 09/09/17 09/10/17 22:00 23:48 01:51 Breakfast Supper 100% Temperature 97.8 F 98.3 F 09/10/17 09/10/17 06:00 09:46 Breakfast Supper Temperature 98.7 F 98.2 F Plan is for d/c today with [facility] Speech tx upon d/c followed by [facility]PD sp tx at [place].
[2017-09-11 06:06] LABS: HBSAG SCREEN Negative (Negative); HEP B CORE AB, TOT Negative (Negative)
== END 2017-09-10 15:59 | disposition home health service (06) | DRG 45 ==
LOC: JER 13:12 → JERBED 16:51 → OBSVTOIN 20:26 → J8W 22:19 → J4S 09-04 02:20
PROVIDERS: ADMIT Hospitalist; ATTEND Internal Medicine
DX: I63.8 Other cerebral infarction (principal); E86.0 Dehydration; I10 Essential (primary) hypertension; I67.2 Cerebral atherosclerosis; K21.9 Gastro-esophageal reflux disease without esophagitis; E66.01 Morbid (severe) obesity due to excess calories; Z68.42 Body mass index [BMI] 45.0-49.9, adult; Z79.4 Long term (current) use of insulin; F32.9 Major depressive disorder, single episode, unspecified; E11.65 Type 2 diabetes mellitus with hyperglycemia; I65.22 Occlusion and stenosis of left carotid artery; R29.810 Facial weakness
CPT/HCPCS: 36415; 70450-TC; 70544-TC; 70547-TC; 70551-TC; 71045-TC; 80053; 81003; 82465; 82947; 82962; 83036; 83090; 83690; 83718; 83721; 83735; 84100; 84443; 84478; 85025; 85610; 85651; 85730; 86704; 86706; 86708; 86803; 87086; 87340; 87389; 93005; 93010; 93306-TC; 93880-TC; 97116-GP; 97161-GP; 99285-25; G0378; J1644